=== PATIENT | male | born 1975 | race Hispanic/Latino ===

== ENCOUNTER 2017-06-23 09:18 | Emergency (ER) | payer OTHER ==
[~2017-06-23] VITALS: Ht 172.7 cm; Wt 82.0 kg
[2017-06-23] MEDS ORDERED: CLINDAMYCIN HC150 MG PO (09:56)
[2017-06-23] MEDS ORDERED: BACTRIM DS1 TAB PO (11:20)
[2017-06-23] MEDS ORDERED: NAPROSYN500 MG PO (11:35)
[2017-06-23 11:55] VITALS: BP 117/71
== END 2017-06-23 12:04 | disposition home or self-care (01) | DRG 607 ==
LOC: ED 09:18
DX: L73.9 Follicular disorder, unspecified (principal); E11.9 Type 2 diabetes mellitus without complications; F17.210 Nicotine dependence, cigarettes, uncomplicated

== ENCOUNTER 2018-11-17 10:16 | Emergency (ER) | payer SELFPAY ==
[~2018-11-17] VITALS: Ht 172.7 cm; Wt 74.0 kg
[~2018-11-17 10:16] MED LIST: BACTRIM DS1 TAB PO; CLINDAMYCIN HC150 MG PO; NAPROSYN500 MG PO
[2018-11-17] MEDS ORDERED: ACULAR LS0.4 % OS (10:42)
[2018-11-17] MEDS ORDERED: ERYTHROMYCIN O3.5 GM OU (10:42)
[2018-11-17 11:08] VITALS: BP 138/77
== END 2018-11-17 11:08 | disposition home or self-care (01) | DRG 125 ==
LOC: ED 10:16
DX: H10.9 Unspecified conjunctivitis (principal); E11.9 Type 2 diabetes mellitus without complications; F17.210 Nicotine dependence, cigarettes, uncomplicated

== ENCOUNTER 2020-04-27 20:31 | Inpatient (IN) | payer MEDICAID ==
[~2020-04-27] VITALS: Ht 175.3 cm; Wt 81.6 kg
[~2020-04-27 20:31] MED LIST changes: +ACULAR LS0.4 % OS; +ERYTHROMYCIN O3.5 GM OU
--- NOTE | 2020-04-27 20:34 | NUR ---
Pt to room # 6 via W/C for bedside triage
--- NOTE | 2020-04-27 21:00 | NUR ---
PT WENT TO [facility] ON FRIDAY GIVEN TRAMADOL AND VOLTAREN THEN ON FRIDAY HE WENT TO [facility] AND THEY GAVE HIM VICODIN AND KEFLEX. ASKED PT WHY HE DID NOT RETURN TO [facility]ITH[facility] HOSPITAL AND REPLY WAS [facility] DIDN'T GIVE HIM ANTIBIOTIC AND [facility] SAID HE WOULD BE BETTER IN 2 DAYS. PT LIVES IN [facility]. EXPLAINED THE NEED TO FOLLOW UP WITH SAME DOCTOR SO THEY CAN MONITOR HIS PROGRESS OR DECLINE. STILL NOT GETTING THE WHOLE STORY. PT STATED HE JUMPED DOWN OFF LADDER AND FELT SOMETHING POP. PUNCTURE WOUND NOTED TO BOTTOM CENTER OF FOOT. REDNESS AND SWELLING TO FOOT.
[2020-04-27] MEDS ORDERED: KEFLEX500 MG PO (21:16)
[2020-04-27] MEDS ORDERED: HYDROCODONE BIT1 TA9 PO (21:18)
[2020-04-27 21:30] LABS: HEMATOCRIT 38.7 % (39.0-50.0); HEMOGLOBIN 13.3 g/dl (14.0-18.0); MEAN CELL VOLUME 90.8 fL CALC (80.0-100.0); MEAN CORPUSCULAR HGB 31.2 pG CALC (26.0-32.0); MEAN CORPUSCULAR HGB CONC 34.4 g/dL CAL (32.0-36.0); PLATELET COUNT 231 thou/uL (130-400); RED BLOOD COUNT 4.26 mill/uL (4.70-6.10)
[2020-04-27 21:31] LABS: BASO% 0 % (0-3); EOS% 0 % (0-8); LYMPH% 10 % (15-41); MONO% 12 % (2-13); NEUT% 78 % (42-76)
[2020-04-27 21:36] LABS: ALBUMIN 3.3 g/dL (3.2-5.0); ALKALINE PHOSPHATASE 271 u/l (38-126); ANION GAP 13 (6-22 (CALC)); BUN 11 mg/dL (9-20); BUN/CREATININE RATIO 18 (12-20 (CALC)); CARBON DIOXIDE 29 mmol/l (22-30); CHLORIDE 94 mmol/l (95-108); CREATININE 0.6 mg/dL (0.7-1.3); GFR > 60 ML/MIN (>=60 (CALC)); GFR FOR AFR.AMER. > 60 ML/MIN (>=60 (CALC)); POTASSIUM 4.6 mmol/l (3.5-5.1); SGOT/AST 31 u/l (17-59); SODIUM 131 mmol/l (137-146); TOTAL PROTEIN 6.5 g/dL (6.3-8.2)
--- NOTE | 2020-04-27 21:44 | NUR ---
PT PAIN FREE AT THIS TIME. NO REACTION TO MEDICATION.
[2020-04-27 21:49] LABS: C-REACTIVE PROTEIN > 27.0 mg/dL (0-0.9)
--- NOTE | 2020-04-27 22:30 | NUR ---
REPORT GIVEN TO IESHA SANTOS
--- NOTE | 2020-04-27 22:55 | NUR ---
Admission Note Report Given to: TOM Transported by: X Wheelchair Stretcher Transported with: X Nurse Transporter X Patent IV O2 Blasting [place] Location: ICU X MS2
[2020-04-28] VITALS (10 sets, daily range): BP systolic 100–154; BP diastolic 57–82
--- NOTE | 2020-04-28 00:01 | NUR ---
RECEIVED PATIENT TO ROOM 274 AT 2300. PATIENT IS ALERT AND ORIENTED X3. ABLE TO MAKE NEEDS KNOWN. BURUNDIAN SPEAKING ONLY. SIGNIFICANT OTHER AT BEDSIDE TO HELP WITH COMMUNICATION. RESPIRATIONS EASY ON ROOM AIR.. SKIN WARM DRY. WOUND NOTED TO RIGHT FOOT WITH EDEMA NOTED. PAIN 1-2 OF 10 AT THIS TIME. CONTINENT OF URINE AND BOWEL. REPORTS HAVING BM 04/27/2020 IN A.M. SOFT FORMED AND BROWN IN COLOR. VAD #20 LAC WITH VANCO INFUSING FROM THE ED. SKIN INTACT EXCEPT RIGHT FOOT. EDUCATED PATIENT ON ROOM AND CALL LIGHT SYSTEM, SAFETY AND FALL PRECAUTIONS. VERBALIZED UNDERSTANDING. BED IN LOW POSITION. CALL LIGHT WITHIN REACH.
--- NOTE | 2020-04-28 04:00 | NUR ---
PATIENT RESTING WITH EYES CLOSED. WOUNDS TO RIGHT FOOT MEASURED AND PHOTOS TAKEN AND PLACED IN CHART. FOOT WRAPPED TO KEEP CLEAN UNTIL WOUND CARE ASSESSES FOOT. CURRENTLY ON ABT THERAPY FOR WOUND INFECTION TO RIGHT FOOT. BED IN LOW POSITION. CALL LIGHT WITHIN REACH.
[2020-04-28 05:40] LABS: URINE BILIRUBIN - DIPSTICK NEGATIVE (NEGATIVE); URINE BLOOD DIPSTICK LARGE (NEGATIVE); URINE COLOR YELLOW; URINE GLUCOSE - DIPSTICK 500 mg/dL (NEGATIVE); URINE KETONE NEGATIVE (NEGATIVE); URINE LEUK ESTERASE NEGATIVE (NEGATIVE); URINE NITRITE - DIPSTICK NEGATIVE (Negative); URINE PROTEIN - DIPSTICK TRACE mg/dL (NEG-TRACE)
[2020-04-28 05:44] LABS: HEMATOCRIT 34.6 % (39.0-50.0); HEMOGLOBIN 11.6 g/dl (14.0-18.0); IMMATURE GRANULOCYTES 1.5 % (0.0-5.0); MEAN CELL VOLUME 91.1 fL CALC (80.0-100.0); MEAN CORPUSCULAR HGB 30.5 pG CALC (26.0-32.0); MEAN CORPUSCULAR HGB CONC 33.5 g/dL CAL (32.0-36.0); NEUT# 13.78 thou/uL (1.82-7.42); RED BLOOD COUNT 3.8 mill/uL (4.70-6.10); RED CELL DISTRI WIDTH 13.2 % (11.5-15.5)
--- NOTE | 2020-04-28 06:00 | NUR ---
PATIENT COMPLAINED OF PAIN TO RIGHT FOOT. MORPHINE CLARIFIED. 4MG IV GIVEN FOR PAIN WITH POSITIVE EFFECT. BED IN LOW POSITION. CALL LIGHT WITHIN REACH.
[2020-04-28 06:02] LABS: ANION GAP 11 (6-22 (CALC)); BUN 14 mg/dL (9-20); BUN/CREATININE RATIO 19 (12-20 (CALC)); CARBON DIOXIDE 28 mmol/l (22-30); CHLORIDE 95 mmol/l (95-108); CREATININE 0.7 mg/dL (0.7-1.3); GFR > 60 ML/MIN (>=60 (CALC)); GFR FOR AFR.AMER. > 60 ML/MIN (>=60 (CALC)); POTASSIUM 4.3 mmol/l (3.5-5.1); SODIUM 130 mmol/l (137-146)
[2020-04-28 06:05] LABS: URINE BACTERIA FEW hpf; URINE SQUAMOUS EPITHELIAL CELL FEW EPI/hpf (0-FEW); URINE WBC 0-2 WBC/hpf (0-5)
--- NOTE | 2020-04-28 07:04 | NUR ---
Patient screened for PT intervention and no needs are identified at this time. He may benefit from wound care consult
--- NOTE | 2020-04-28 08:00 | NUR ---
ASSESSMENT DONE. PT IS A&O X3. PT STATED PAIN IN RIGHT FOOT AT TIMES 10 BUT REFUSED PAIN MEDICATION AT THIS TIME. RESPS EVEN AND UNLABORED. PT NPO. IVF INFUSING WELL. RIGHT FOOT WOUND OPEN TO AIR AND FEELS WARM TO THE TOUCH. PT DENIES ANY NEEDS AT THIS TIME. SAFETY PRECAUTIONS REINFORCED AND CALL LIGHT IN REACH.
--- NOTE | 2020-04-28 10:00 | NUR ---
PT WENT TO OR VIA STRETCHTER BY IESHA BOSWELL.
--- NOTE | 2020-04-28 10:53 | NUR ---
S: BETH ALTAMIRANO is a 44 M who presents with diabetic foot infection. He has a history of diabetes. All medications in patient's chart were reviewed. O: VS: BP 147/82 mmHg, P 100 bpm, RR 22 breaths per minutes, T 100.2 F W 82 kg, HT 68 in, Scr= 0.7 mg/dL, CrCl= 159 ml/min A: Blood culture is pending. P: Patient is on Zosyn 3.375 g IV q6h. Vancomycin ordered for pharmacy to dose. Start Vancomycin 1 g IV Q8H. Vancomycin trough is drawn before the 4th dose on 04/29/20 at 0730. Vancomycin goal trough is between 10-15 mcg/ml. Pharmacy will follow and or advise on antibiotics use as needed.
--- NOTE | 2020-04-28 13:09 | NUR ---
PT IN ROOM. PT BACK FROM OR VIA STRETCHTER BY IESHA FARRELL. PT TRANSFER TO BED. DRESSING IN RIGHT FOOTT CDI. PT STATED PAIN IN FOOT 10/14. ICE CHIPS AND WATER PROVIDED. IVF INFSUING WELL. X2 PILLOW UNDER RIGHT LEG. PT DENIES ANY OTHER NEEDS AT THIS TIME. CALL LIGHT IN REACH.
--- NOTE | 2020-04-28 16:30 | NUR ---
PROVIDED PT WITH PO FLUIDS . MEDICATED PT WITH MILK MAG FOR A BM. IN ROOM. SCD IN PLACE. PT DENIES ANY OTHER NEEDS AT THIS TIME. CALL LIGHT IN REACH.-
--- NOTE | 2020-04-28 20:45 | NUR ---
PATIENT AWAKE IN BED. ALERT AND ORIENTED X3. ABLE TO MAKE NEEDS KNOWN. RESPIRATIONS EASY. O2 2L NC PRN. AT 1915 PATIENT REPORTED PAIN 2 OF 10 TO RIGHT FOOT. RIGHT FOOT BANDAGED, CDI, AFTER SUGERY. PATIENT HAD MODERATE AMOUNT OF EMESIS BROWN AND GREEN CHUNKS NOTED. 4MG ZOFRAN IV GIVEN.
--- NOTE | 2020-04-29 00:30 | NUR ---
PATIENT RESTING QUIETLY WATCHING TV. PATIENT MEDICATED WITH MORPHINE 4MG IV FOR RIGHT FOOT PAIN WITH VERY GOOD POSITIVE EFFECT PAIN REASSESSED AT -08/16 AFTER ADMINISTRATION. PATIENT HAD NAUSEA EARLIER. ZOFRAN 4MG IV GIVEN WITH IMMEDIATE POSITIVE EFFECT. RIGHT FOOT ELEVATED ON PILLOWS. DESSING CDI. IV ABT ADMINISTERED. BED IN LOW POSITION. CALL LIGHT WITHIN REACH.
[2020-04-29 04:00] VITALS: BP 156/83
--- NOTE | 2020-04-29 04:00 | NUR ---
PATIENT C/O SEVERE RIGHT FOOT PAIN 04/06. MORPHINE NOT DUE FOR 3 MORE HOURS. MD NOTIFIED. NEW ORDERS RECEIVED. MORPHINE 4MG IV GIVEN WITH IMMEDIATE POSITVE EFFECT 07/16. BED IN LOW POSITION. CALL LIGHT WITHIN REACH.
[2020-04-29 07:11] VITALS: BP 140/75
--- NOTE | 2020-04-29 07:11 | NUR ---
PT RESTING IN BED, NO SIGNS OF DISTRESS NOTED, RESP EVEN AND UNLABORED. PT ALERT AND ORIENTED X3, DRESSING TO RLE CDI, SCD TO LLE, PT SOUTH AFRICAN SPEAKING, PORTABLE ROUTER OPERATOR SPEAKS SOUTH AFRICAN. DISCUSSED POC, ASSESSMENT COMPLETED, CALL LIGHT IN REACH,CONTINUE TO MONITOR.
[2020-04-29 07:46] LABS: HEMATOCRIT 30.2 % (39.0-50.0); HEMOGLOBIN 10.1 g/dl (14.0-18.0); IMMATURE GRANULOCYTES 1.6 % (0.0-5.0); MEAN CELL VOLUME 91.5 fL CALC (80.0-100.0); MEAN CORPUSCULAR HGB 30.6 pG CALC (26.0-32.0); MEAN CORPUSCULAR HGB CONC 33.4 g/dL CAL (32.0-36.0); NEUT# 12.16 thou/uL (1.82-7.42); RED BLOOD COUNT 3.3 mill/uL (4.70-6.10); RED CELL DISTRI WIDTH 13.3 % (11.5-15.5)
[2020-04-29 08:06] LABS: ALKALINE PHOSPHATASE 235 u/l (38-126); ANION GAP 11 (6-22 (CALC)); BILIRUBIN, TOTAL 0.9 mg/dL (0.0-1.4); BUN 10 mg/dL (9-20); BUN/CREATININE RATIO 16 (12-20 (CALC)); CARBON DIOXIDE 24 mmol/l (22-30); CHLORIDE 104 mmol/l (95-108); CREATININE 0.6 mg/dL (0.7-1.3); GFR > 60 ML/MIN (>=60 (CALC)); GFR FOR AFR.AMER. > 60 ML/MIN (>=60 (CALC)); POTASSIUM 4.1 mmol/l (3.5-5.1); SGOT/AST 30 u/l (17-59); SODIUM 135 mmol/l (137-146); TOTAL PROTEIN 5.2 g/dL (6.3-8.2)
[2020-04-29 08:10] LABS: ALBUMIN 2.5 g/dL (3.2-5.0)
--- NOTE | 2020-04-29 08:25 | NUR ---
PT RESTING IN BED AT BEDSIDE, PT MEDICATED FOR PAIN PT TEARFUL, CALL LIGHT IN REACH,CONTINUE TO MONITOR.
--- NOTE | 2020-04-29 09:45 | NUR ---
PT RESTING IN BED, AT BEDSIDE, ENTERED ROOM TO DISCUSSED PNEUMONIA AND FLU VACC, CONSENT SIGNED, INFORMATION GIVEN ON VACCINES. ALSO DISCUSSED WITH AND PT REGARDING DIABETES, INFORMATION IN [place] PROVIDED TO PT, VERBALIZED UNDERSTANDING. AND BUTCH ARRIVED TO BEDSIDE TO DISCUSS POC, WALKER PROVIDED TO PT FOR NON WT BEARING TO RLE. CALL LIGHT IN REACH,CONTINUE TO MONITOR.
--- NOTE | 2020-04-29 10:10 | NUR ---
AT BEDSIDE DOING DRESSING CHANGED, PT MEDICATED FOR PAIN, AT BEDSIDE. PT TOLERATING WELL. CALL LIGHT IN REACH,CONTINUE TO MONITOR.
--- NOTE | 2020-04-29 10:46 | NUR ---
S: BETH ALTAMIRANO is a 44 M who presents with diabetic foot infection. He has a history of right shoulder surgery. All medications in patient's chart were reviewed. O: VS: BP 140/75 mmHg, P 91 bmp, RR 21 breaths/min, T 97.8 W 82 kg, Scr= 0.6 mg/dL, CrCl= 159 ml/min Vancomycin Trough levels: 7 ug/mL A: Blood culture is pending. P: Patient is on Zosyn 3.375 g Q6H. Vancomycin ordered for pharmacy to dose. Change Vancomycin to 1500 mg IV Q8H. Vancomycin trough is drawn before the 4th dose on 04/30/20 at 0930. Vancomycin goal trough is between 10-15 mcg/ml. Pharmacy will follow and or advise on antibiotics use as needed.
--- NOTE | 2020-04-29 11:48 | NUR ---
PT NAUSEOUS, NEW ORDER FOR ANTIEMETIC, PT MEDICATED PER SEP, PT HAS A FEVER 101.4, CALL LIGHT IN REACH,CONTINUE TO MONITOR.
--- NOTE | 2020-04-29 13:28 | NUR ---
PT MEDICATED PER MAR FOR PAIN, CALL LIGHT IN REACH,CONTINUE TO MONITOR.
--- NOTE | 2020-04-29 14:19 | NUR ---
PT RESTING IN BED, DENIES PAIN AT THIS TIME. CALL LIGHT IN REACH,CONTINUE TO MONITOR
[2020-04-29 16:25] VITALS: BP 130/75
--- NOTE | 2020-04-29 19:12 | NUR ---
PT IN BED W/ ON SIDE OF BED WITH HIM. PT DENIES ANY NEEDS AT THIS TIME. CALL LIGHT IS W/IN REACH.
[2020-04-29 19:21] VITALS: BP 107/66
--- NOTE | 2020-04-29 20:50 | NUR ---
PT MEDICATED FOR PAIN AND PM MEDICATIONS ORDERED. TRANSLATION PROVIDED BY IESHA FINK. PT REPORTED PAIN 7/10 ON PAIN SCALE AND STATES THAT THE DOCTOR TOLD HIM TO ASK FOR THE PAIN MEDICATION EVERY 4 HOURS TO KEEP FROM GETTING INTO PAIN. POC AND ORDERS DISCUSSED AT THIS TIME WITH THE PT AND HER VERBALIZED UNDERSTANDING. PT WAS ASKED TO REPORT ANY PAIN PRIOR TO GREATER THAN 4/10 IN ORDER TO KEEP PAIN DOWN, VERBALIZED UNDERSTANDING. PT DENIES ANY OTHER NEEDS AT THIS TIME. CALL LIGHT W/IN REACH.
--- NOTE | 2020-04-29 23:45 | NUR ---
PT MEDICATED FOR PAIN 5/10 ON PAIN SCALE. ANTIBIOTIC THERAPY ADMINISTERED TODAY. PT REPORTS FEELING HOT AND COLD, CONCERNED HE HAD A FEVER, TEMP TAKEN @98.6. PT DENIES ANY OTHER NEEDS. TRANSLATION PROVIDED BY IESHA FINK/SUPERVISION.
--- NOTE | 2020-04-30 00:59 | NUR ---
pt c/o chills and asked to have temp taken. pt tympanic temp 100.4 at this time. Pt medicated for pain 7/10 on pain scale. Pt reports the Dilaudid did not help, he needs something by mouth. Provided percocet at this time. Will reassess for temp, room is cooled. Antibiotic therapy administered at this time. Urinal emptied of 1000cc of dark yellow urine. Denies any other needs at this time.
--- NOTE | 2020-04-30 02:00 | NUR ---
pt called me to ask why drops were not dropping from his ivf. I showed him that the pump was on and running 250mls per hr with iv antibiotic vancomycin at this time, he will see the drops of other ivf when that one is complete. Pt provided ice water pitcher refill, denies any other needs.
--- NOTE | 2020-04-30 02:30 | NUR ---
Pt called asking for pain medication. Reports previously administered medication doses did not take the pain away. Reporting 9/10 on pain scale from previously 7/10 when last medicated. Advised pt keep foot elevated on pillow for comfort and pt provided IV pain medication at this time. IV antibiotic is running/site appears healthy. No s/o distress noted. Call light is w/in reach. Pt requesting lights and tv be left on. Ice water replaced in pitcher at this time.
--- NOTE | 2020-04-30 03:20 | NUR ---
Pt sleeping at this time. No s/o distress.
[2020-04-30 05:57] LABS: HEMATOCRIT 29.2 % (39.0-50.0); HEMOGLOBIN 9.6 g/dl (14.0-18.0); MEAN CELL VOLUME 91.5 fL CALC (80.0-100.0); MEAN CORPUSCULAR HGB 30.1 pG CALC (26.0-32.0); MEAN CORPUSCULAR HGB CONC 32.9 g/dL CAL (32.0-36.0); RED BLOOD COUNT 3.19 mill/uL (4.70-6.10); RED CELL DISTRI WIDTH 13.2 % (11.5-15.5)
[2020-04-30 06:02] LABS: ANION GAP 10 (6-22 (CALC)); BUN 10 mg/dL (9-20); BUN/CREATININE RATIO 16 (12-20 (CALC)); CARBON DIOXIDE 26 mmol/l (22-30); CHLORIDE 99 mmol/l (95-108); CREATININE 0.7 mg/dL (0.7-1.3); GFR > 60 ML/MIN (>=60 (CALC)); GFR FOR AFR.AMER. > 60 ML/MIN (>=60 (CALC)); MAGNESIUM 1.8 mg/dL (1.6-2.3); POTASSIUM 4.3 mmol/l (3.5-5.1); SODIUM 130 mmol/l (137-146)
[2020-04-30 06:15] VITALS: BP 150/87
--- NOTE | 2020-04-30 06:25 | NUR ---
PT MEDICATED FOR NAUSEA, PAIN AND ANTIBIOTIC THERAPY. PT ALSO MEDICATED W/TYLENOL FOR FEVER 100.6, PT SYMPTOMATIC, HR ELEVATED AND CHILLS REPORTED. PT REQUESTED ICEPACK FOR HEAD/PROVIDED.
[2020-04-30 07:09] VITALS: BP 133/75
--- NOTE | 2020-04-30 07:09 | NUR ---
PT RESTING IN BED, NO SIGNS OF DISTRESS NOTED, RESP EVEN AND UNLABORED. PT ALERT AND ORIENTED X3, MALTESE SPEAKING, MONOLOGIST SPEAKS MALTESE. DISCUSSED POC, DRESSING TO RLE CDI, SCD TO LLE. VITALS OBTAINED, ASSESSMENT COMPLETED, CALL LIGHT IN REACH,CONTINUE TO MONITOR.
--- NOTE | 2020-04-30 11:05 | NUR ---
PT RESTING IN BED, AT BEDSIDE, DISCUSSED LEVEMIR WITH PT, VERBALIZED UNDERSTANDING. [facility], GABRIELLE GUEVARA. CALL LIGHT IN REACH,CONTINUE TO MONITOR.
--- NOTE | 2020-04-30 11:43 | NUR ---
S: BETH ALTAMIRANO is a 44 M who presents with diabetic foot infection. He has a history of tobacco abuse and diabetes. All medications in patient's chart were reviewed. O: VS: BP 133/75 mmHg, P 105 bpm, RR 20 breaths/min, T 98.2 F W 81.6 kg, HT 60 in, Scr= 0.7 mg/dl, CrCl= 159 ml/min Trough levels on 04/30/20 at 1020 was 8 ug/mL A: Blood culture is pending. P: Patient is on Zosyn 3.375 g IV Q6H. Vancomycin ordered for pharmacy to dose. Continue Vancomycin 1500 mg IV Q8H and re-draw trough on 05/01/20 at 0930. Vancomycin goal trough is between 10-15 mcg/ml. Pharmacy will follow and or advise on antibiotics use as needed.
[2020-04-30 11:44] VITALS: BP 135/75
--- NOTE | 2020-04-30 14:30 | NUR ---
PT CALLED C/O PAIN, NO SIGNS OF DISTRESS NOTED, RESP EVEN AND UNLABORED.CALL LIGHT IN REACH,CONTINUE TO MONITOR.
[2020-04-30 19:00] VITALS: BP 127/79
--- NOTE | 2020-04-30 19:00 | NUR ---
REPORT RECEIVED FROM Zakia THORNE LPN, CARE OF PT ASSUMED AT THIS TIME.
--- NOTE | 2020-04-30 21:00 | NUR ---
PHYSICAL ASSESMENT COMPLETE. DRESSING TO RLE CLEAN/DRY/INTACT. SEE E-MAR FOR ADMINISTRATION OF SCHEDULED AND PRN MEDICATIONS. PLAN OF CARE REVIEWED. PT VERBALIZES UNDERSTANDING AND DENIES QUESTIONS. DENIES FURTHER NEEDS AT THIS TIME. CALL JIMENEZ WITHIN REACH, AGREES TO CALL PRN.
[2020-05-01] VITALS (11 sets, daily range): BP systolic 133–156; BP diastolic 66–92
--- NOTE | 2020-05-01 01:00 | NUR ---
PT APPEARS TO BE SLEEPING COMFORTABLY, NO APPARENT DISTRESS, RESPIRATION REGULAR AND UNLABORED, EYES CLOSED. CALL JIMENEZ REMAINS WITHIN REACH.
--- NOTE | 2020-05-01 07:34 | NUR ---
PT. TO GO TO SURGERY FOR AN I&D TODAY OF THE RIGHT FOOT. WALKS WITH ASSIST TO BR WITH WALKER. FRISIAN SPEAKING ONLY. iv LAC 20 G PATENT. TO BE NPO AFTER 9AM FOR SURGERY IN THE AFTERNOON. GOD PEDAL PULSE LEFT FOOT. WILL MONITOR. USES URINAL
--- NOTE | 2020-05-01 11:32 | NUR ---
S: BETH ALTAMIRANO is a 44 M who presents with diabetic foot infecction. He has a history of diabetes and tobacco use. All medications in patient's chart were reviewed. O: VS: BP 149/85 mmHg, P 101 bpm, RR 20 breaths per minute, T 98.6 F W 81.6 kg, HT 60 in, Scr= 0.7 mg/dL, CrCl= 159 ml/min Vanco trough on 05/01 @ 0930: 10 ug/mL A: Blood culture is pending. Wound culture shows E.coli sensitive to ceftriaxone. P: Patient is on ceftriaxone 2 g IV q24h. Vancomycin ordered for pharmacy to dose. Continue Vancomycin 1500 mg IV Q8H. Vancomycin trough is drawn before the 4th dose on 05/02/20 at 0930. Vancomycin goal trough is between 10-15 mcg/ml. Pharmacy will follow and or advise on antibiotics use as needed.
--- NOTE | 2020-05-01 12:00 | NUR ---
PT. ALERT AND HEBREW SPEAKING. MADE npo AFTER 9AM FOR SURGERY THIS AFTERNOON ON RIGHT FOOT. iv L AC PATIENT AND INTACT. PT. MEDICATED FOR PAIN PRN TO KEEP COMFORTABLE. GOOD PEDAL PULSE TO L FOOT. WILL MONITOR.
--- NOTE | 2020-05-01 12:07 | NUR ---
called wound vac [facility] at spoke to MJ and was given confirmation number [id number].
--- NOTE | 2020-05-01 16:00 | NUR ---
PT. STILL IN OR. AWAITING NOTIFICATION THAT PT. IS OUT OF SURGERY. FAMILY MEMBER IS AT BEDSIDE. OFFERED SNACK TO FAMILY MEMBER.
--- NOTE | 2020-05-01 19:55 | NUR ---
RECEIVED REPORT FROM NURSE MIS, PATIENT WAS TRANSPORTED VIA BED, WOUNDVAC ON RT FOOT AT 125, S/P I&D OF RT FOOT WITH AMPUTATION OF 4TH DIGIT OF THE RT FOOT, FOOT WRAP WITH KERLIX, PATIENT ASSISTED TO BED, AND OFF LOADED WITH PILLOW, IN ROOM CALL LIGHT AT REACH.
--- NOTE | 2020-05-02 | NUR ---
PATIENT C/O PAIN ON OPERATIVE SITE, PRN DILAUDIS GIVEN, BREATHING EVEN UNLAOBORED REMAINS ON O2 @ 2LPM VIA NC, CALL LIGHT AT REACH.
--- NOTE | 2020-05-02 03:53 | NUR ---
PATIENT RESTING IN BED EYES CLOSED, O2 @ 2LPM VIA NC, WOUNDVAC SET @ 125 NO LEAKS, RLE REMAINS ELEVATED, CALL LIGHT AT REACH.
[2020-05-02 03:55] VITALS: BP 158/89
[2020-05-02 04:43] LABS: HEMATOCRIT 26.6 % (39.0-50.0); HEMOGLOBIN 8.8 g/dl (14.0-18.0); MEAN CELL VOLUME 91.7 fL CALC (80.0-100.0); MEAN CORPUSCULAR HGB 30.3 pG CALC (26.0-32.0); MEAN CORPUSCULAR HGB CONC 33.1 g/dL CAL (32.0-36.0); RED BLOOD COUNT 2.9 mill/uL (4.70-6.10); RED CELL DISTRI WIDTH 13.2 % (11.5-15.5)
[2020-05-02 05:01] LABS: ANION GAP 10 (6-22 (CALC)); BUN 7 mg/dL (9-20); BUN/CREATININE RATIO 11 (12-20 (CALC)); CARBON DIOXIDE 26 mmol/l (22-30); CHLORIDE 100 mmol/l (95-108); CREATININE 0.7 mg/dL (0.7-1.3); GFR > 60 ML/MIN (>=60 (CALC)); GFR FOR AFR.AMER. > 60 ML/MIN (>=60 (CALC)); POTASSIUM 4.1 mmol/l (3.5-5.1); SODIUM 133 mmol/l (137-146)
[2020-05-02 08:00] VITALS: BP 135/82
--- NOTE | 2020-05-02 09:00 | NUR ---
PT AWAKE, ALERT, ORIENTED X 3. RIGHT FOOT SEEN WITH DRESSING, SOURCE OF HIS DISCOMFORT. PT MEDICATED POSSIBLE. AT BEDSIDE.
[2020-05-02 11:10] VITALS: BP 115/67
[2020-05-02 14:55] VITALS: BP 117/64
--- NOTE | 2020-05-02 18:41 | NUR ---
PT WITH DOUBLE LUMEN PICC LINE PLACED TODAY. PT HAS RECEIVED PAIN MEDICINE JUST ABOUT EVERY 2 HOURS WHEN AVAILABLE. AT BEDSIDE MUCH OF THE DAY.
[2020-05-02 19:10] VITALS: BP 134/75
--- NOTE | 2020-05-02 19:30 | NUR ---
PATIENT RESTING IN BED AT THIS TIME-AWAKE ALERT AND ORIENTEDX3 WITH S/O AT BEDSIDE. PATIENT IS MOSTLY TAMAZIGHT SPEAKING. STATES THAT PAIN LEVEL IS 3 AT THIS TIME. PATIENT WITH RIGHT FOOT DRESSING CDI AND ELEVATED ON PILLOWS-ATTATCHED TO WOUND VAC@125MMHG CONT ORDERED. CMS CHECK TO RIGHT TOES WNL. DOUBLE LUMEN PICC TO RIGHT UPPER ARM WITH NS AT 20CC/HR. SITE IS HEALTHY. SAFETY PRECAUTIONS REINFORCED. CALL LIGHT IN REACH. WILL CONT TO MONITOR.
--- NOTE | 2020-05-03 00:49 | NUR ---
PATIENT RESTING IN BED WITH RIGHT LEG ELEVATED ON PILLOWS. STATES NO RELIEF FROM PERCOCET GIVEN EARLIER. MEDICATED WITH DILAUDID 1MG IVP ORDERED FOR 10/10 ON PAIN SCALE. SAFETY PRECATUIONS REINFORCED. CALL LIGHT IN REACH. WILL CONT TO MONITOR.
--- NOTE | 2020-05-03 02:50 | NUR ---
PATIENT CALLED AGAIN C/O RIGHT FOOT PAIN-8/10 ON PAIN SCALE. MEDICATED WITH DILAUDID 1MG IVP FOR PAIN. VANCO INFUSING VIA RIGHT UPPER ARM PICC. CALL LIGHT IN REACH. WILL CONT TO MONITOR.
[2020-05-03 04:20] VITALS: BP 126/80
--- NOTE | 2020-05-03 04:24 | NUR ---
PATIENT RESTING IN BED AT THIS TIME-PAIN LEVEL IS 6/10 AT THIS TIME. VANCO COMPLETED AND NS PATENT AND INFUSING AT 20CC/HR VIA RIGHT UPPER ARM. LAB WORK DRAWN FROM PICC WITHOUT ANY DIFFICULTY AND GOOD BLOOD RETURN. FLUSHED WITH HEPARIN SOLUTION PER PROTOCOL. RIGHT FOOT REMAINS ELEVATED WITH WOUND VAC IN PLACE-DRAINING MODERATE AMT OF SERSOSANGUINOUS FLUID-SET AT 125MMHG CONT. DRESSING TO RIGHT FOOT IS CDI. CALL LIGHT IN REACH. WILL CONT TO MONITOR.
[2020-05-03 05:40] LABS: HEMATOCRIT 24.8 % (39.0-50.0); HEMOGLOBIN 8.1 g/dl (14.0-18.0); MEAN CELL VOLUME 93.2 fL CALC (80.0-100.0); MEAN CORPUSCULAR HGB 30.5 pG CALC (26.0-32.0); MEAN CORPUSCULAR HGB CONC 32.7 g/dL CAL (32.0-36.0); RED BLOOD COUNT 2.66 mill/uL (4.70-6.10); RED CELL DISTRI WIDTH 13.2 % (11.5-15.5)
[2020-05-03 05:59] LABS: ANION GAP 8 (6-22 (CALC)); BUN 5 mg/dL (9-20); BUN/CREATININE RATIO 10 (12-20 (CALC)); CARBON DIOXIDE 30 mmol/l (22-30); CHLORIDE 101 mmol/l (95-108); CREATININE 0.6 mg/dL (0.7-1.3); GFR > 60 ML/MIN (>=60 (CALC)); GFR FOR AFR.AMER. > 60 ML/MIN (>=60 (CALC)); MAGNESIUM 1.9 mg/dL (1.6-2.3); SODIUM 134 mmol/l (137-146)
[2020-05-03 07:35] VITALS: BP 136/81
--- NOTE | 2020-05-03 07:35 | NUR ---
PT LAYING IN BED. A&O X3. NO DISTRESS NOTED. DOUBLE LUMEN PICC TO PUSHPA IN PLACE. FLUSHES AND DRAWS BACK BLOOD WITH EASE. WOUND VAC TO RLE IN PLACE, SUCTIONING AT 125 MM HG WITH SANGUINEOUS DRAINAGE NOTED IN COLLECTION CHAMBER. EDEMA NOTED TO LEFT ANKLE. PT C/O OF PAIN 12/14, PAIN MEDICATION TO BE ADMINISTERED PER SEP. ASSESSMENT COMPLETED. DISCUSSED POC. CALL LIGHT IN REACH. CONTINUE TO MONITOR.
--- NOTE | 2020-05-03 11:17 | NUR ---
PT LAYING IN BED WITH AT BEDSIDE. NO DISTRESS NOTED. CALL LIGHT IN REACH. CONTINUE TO MONITOR.
[2020-05-03 15:00] VITALS: BP 118/58
--- NOTE | 2020-05-03 17:47 | NUR ---
350 ML OF SANGUINEOUS FLUID NOTED TO COLLECTION CHAMBER. COLLECTION CHAMBER CHANGED TO A NEW ONE. PT REPORTS 01/13 AT THIS TIME. CALL LIGHT IN REACH. CONTINUE TO MONITOR.
[2020-05-03 18:51] VITALS: BP 139/78
--- NOTE | 2020-05-03 20:29 | NUR ---
PHYSICAL ASSESMENT COMPLETE. PT CURRENTLY STATES THAT HE IS IN PAIN AND DISCOMFORT. SCHEDULED MEDICATIONS AND PRN MEDICATION ADMINISTERED, SEE E-MAR. PT DENIES ANY FURTHER NEEDS AT THIS TIME. PLAN OF CARE REVIEWED, PT DENIES QUESTIONS, VERBALIZES UNDERSTANDING. ITEMS WITHIN REACH, BED LOCKED IN LOW POSITION W/ BEDRAILS UP X2. CALL JIMENEZ WITHIN REACH, AGREES TO CALL PRN.
--- NOTE | 2020-05-04 00:07 | NUR ---
PT LAYING IN BED WITH EYES CLOSED, APPEARS TO BE SLEEPING, APPEARS COMFORTABLE AND IN NO DISTRESS. RESPIRATIONS REGULAR AND UNLABORED. ITEMS REMAIN WITHIN REACH, CALL JIMENEZ REMAINS WITHIN REACH. BED REMAINS LOCKED AND IN LOW POSITION WITH BEDRAILS UP X2. WILL CONTINUE TO MONITOR.
--- NOTE | 2020-05-04 04:02 | NUR ---
PT RESTING IN BED, NO SIGNS OF DISTRESS NOTED, RESP EVEN AND UNLABORED. PT VOICES NO NEEDS OR COMPLAINTS AT THIS TIME. CALL LIGHT IN REACH,CONTINUE TO MONITOR.
[2020-05-04 04:25] VITALS: BP 147/86
[2020-05-04 05:32] LABS: HEMATOCRIT 27.3 % (39.0-50.0); HEMOGLOBIN 8.9 g/dl (14.0-18.0); MEAN CELL VOLUME 92.5 fL CALC (80.0-100.0); MEAN CORPUSCULAR HGB 30.2 pG CALC (26.0-32.0); MEAN CORPUSCULAR HGB CONC 32.6 g/dL CAL (32.0-36.0); RED BLOOD COUNT 2.95 mill/uL (4.70-6.10); RED CELL DISTRI WIDTH 13.2 % (11.5-15.5)
[2020-05-04 05:53] LABS: ANION GAP 11 (6-22 (CALC)); BUN 4 mg/dL (9-20); BUN/CREATININE RATIO 7 (12-20 (CALC)); CARBON DIOXIDE 30 mmol/l (22-30); CHLORIDE 103 mmol/l (95-108); CREATININE 0.6 mg/dL (0.7-1.3); GFR > 60 ML/MIN (>=60 (CALC)); GFR FOR AFR.AMER. > 60 ML/MIN (>=60 (CALC)); POTASSIUM 4.2 mmol/l (3.5-5.1); SODIUM 140 mmol/l (137-146)
[2020-05-04 08:12] VITALS: BP 134/68
--- NOTE | 2020-05-04 08:12 | NUR ---
PT SITTING IN BED. A&O X3. NO DISTRESS NOTED. DOUBLE LUMEN PICC TO PUSHPA, FLUSHES AND DRAWS BLOOD WITH EASE. PT STATES PAIN IS CURRENTLY 4/10. WOUND VAC IN PLACE SET AT SUCTION AT 125 MM HG, WITH DRESSING CDI. CIRCULATION CHECKED WITH BRISK RESPONSE. EDEMA NOTED TO LT FOOT, ELEVATED BOTH FEET ON PILLOWS. NO OTHER NEEDS AT THIS TIME. ASSESSMENT COMPLETED. DISCUSSED POC. CALL LIGHT IN REACH. CONTINUE TO MONITOR.
--- NOTE | 2020-05-04 12:12 | NUR ---
DR NAVARRO AT BEDSIDE COMPLETING WOUND VAC DRESSING CHANGE
[2020-05-04 15:33] VITALS: BP 121/76
--- NOTE | 2020-05-04 16:13 | NUR ---
PT LAYING IN BED WITH AT BEDSIDE. C/O OF PAIN 03/16. PAIN MEDICATION GIVEN. SECURED WOUND VAC DRESSING, WOUND VAC SUCTIONING WITH SANGUINEOUS DRAINAGE NOTED IN COLLECTION CHAMBER. EXPLAINED TO PT TO PRESS CALL LIGHT IF WOUND VAC NOISE CONTINUES. PT VERBALIZED UNDERSTANDING. CALL LIGHT IN REACH. CONTINUE TO MONITOR.
--- NOTE | 2020-05-04 19:30 | NUR ---
PATIENT RESTING IN BED AT THIS TIME WITH S/O AT BEDSIDE. PATIENT IS MOSTLY UGANDAN SPEAKING BUT S/O IS ABLE TO TRANSLATE. PATIENT WITH RIGHT FOOT ELEVATED ON PILLOWS. RIGHT FOOT DRESSING INTACT WITH WOUND VAC IN PLACE. DRAINING SEROSANGUINOUS FLUID. PATIENT WITH DOUBLE LUMEN PICC TO RIGHT UPPER ARM WITH DAPTOMYCIN INFUSING ORDERED. SITE IS HEALTHY AT THIS TIME. PATIENT FOR OR IN AM PER REPORT. SAFETY PRECAUTIONS REINFORCED. CALL LIGHT IN REACH. WILL CONT TO MONITOR.
[2020-05-04 20:30] VITALS: BP 129/75
--- NOTE | 2020-05-04 21:00 | NUR ---
PATIENT RESTING IN BED AND WOUND VAC IS ALARMING-DEAN WRAP AND KERLIX REMOVED. WOUND VAC DRESSING WITHOUT ANY OBVIOUS LEAKAGE BUT REINFORCED. NEW KERLIX DRESSING AND DEAN WRAP REAPPLIED. REMAINS ELEVATED ON PILLOWS. PATIENT MEDICATED FOR PAIN WITH DILAUDID 1MG IVP ORDERED FOR PAIN. BS-173-NOT COVERED AT THIS TIME PER PATIENT. NPO AFTER MIDNIGHT FOR OR IN AM. SAFETY PRECAUTIONS REINFORCED. CALL LIGHT IN REACH. WILL CONT TO MONITOR.
--- NOTE | 2020-05-04 23:00 | NUR ---
PATIENT RESTING IN BED-MEDICATED FOR RIGHT FOOT PAIN WITH DILAUDID 1MG IVP. IVF PATENT AND INFUSING VIA RIGHT UPPER ARM SITE. RIGHT FOOT ELEVATED ON PILLOWS WITH DRESSING INTACT-WOUND VAC IN PLACE. CALL LIGHT IN REACH. WILL CONT TO MONITOR.
--- NOTE | 2020-05-05 03:19 | NUR ---
PATIENT APPEARS SLEEPING WITH SHEET OVER HIS HEAD. RESPS ARE EVEN AND UNLABORED. NPO ORDERED. VOIDING QS CLEAR YELLOW URINE IN URINAL. CALL LIGHT IN REACH. WILL CONT TO MONITOR.
[2020-05-05 04:15] VITALS: BP 121/74
--- NOTE | 2020-05-05 04:33 | NUR ---
WOUND VAC IS ALARMING AGAIN-DEAN AND KERLIX DRESSING REMOVED AND WOUND VAC PATCHED OVER THE BLACK SPONGE AREA. NEW KERLIX GAUZE AND DEAN WRAP APPLIED. WOUND VAC AT 125MMHG DRAINING BLOODY DRAINAGE. PATIENT C/O RIGHT FOOT PAIN AND WAS MEDICATED WITH DILAUDID 1MG IVP FOR PAIN. PATIENT REMAINS NPO FOR OR TODAY. RIGHT FOOT ELEVATED ON PILLOWS. CALL LIGHT IN REACH. WILL CONT TO MONITOR.
[2020-05-05 05:51] LABS: HEMATOCRIT 26.7 % (39.0-50.0); HEMOGLOBIN 8.6 g/dl (14.0-18.0); MEAN CELL VOLUME 92.4 fL CALC (80.0-100.0); MEAN CORPUSCULAR HGB 29.8 pG CALC (26.0-32.0); MEAN CORPUSCULAR HGB CONC 32.2 g/dL CAL (32.0-36.0); RED BLOOD COUNT 2.89 mill/uL (4.70-6.10); RED CELL DISTRI WIDTH 13.2 % (11.5-15.5)
[2020-05-05 06:04] LABS: ANION GAP 11 (6-22 (CALC)); BUN 7 mg/dL (9-20); BUN/CREATININE RATIO 11 (12-20 (CALC)); CARBON DIOXIDE 28 mmol/l (22-30); CHLORIDE 103 mmol/l (95-108); CREATININE 0.6 mg/dL (0.7-1.3); GFR > 60 ML/MIN (>=60 (CALC)); GFR FOR AFR.AMER. > 60 ML/MIN (>=60 (CALC)); POTASSIUM 4.4 mmol/l (3.5-5.1); SODIUM 138 mmol/l (137-146)
[2020-05-05 07:40] VITALS: BP 105/60
--- NOTE | 2020-05-05 10:26 | NUR ---
PATIENT TO SURGERY VIA STRETCHER, FAMILY AT BEDSIDE, PT VERB UNDERSTANDING OF SURGERY. LEFT FOOT WD VAC, DRESSING INTACT, TOES WARM AND DRY, SERO-SANG DRAINAGE IN THE WD VAC CANISTER. WILL CONTINUE TO MONITOR.
--- NOTE | 2020-05-05 14:26 | NUR ---
PT RETURNED TO ROOM FROM SURGERY, WD VAC DRESSING INTACT, PT C/O PAIN. DILAUDID 1MG GIVEN 162/104, 18, 98.1
--- NOTE | 2020-05-05 15:23 | NUR ---
PATIENT AND FAMILY EDUCATION, PATIENT STATED THAT HE WAS NOT ON INSULIN AT HOME, INSTRUCTED THE PATIENT TO ASK FOR INSTRUCTIONS IF HE IS DISCHARGE WITH INSULIN. EXPLAINED TO PATIENT AND THAT HE HAS A BONE INFECTION AND TREATMENT WILL BE FOR APPROX. 6WKS, VERB UNDERSTANDING
[2020-05-05 20:00] VITALS: BP 133/71
--- NOTE | 2020-05-05 20:02 | NUR ---
RECEIEVED REPORT FROM NURSE. PT RESTING IN HIGH FOLWERS UPON ENTERING ROOM. INTRODUCED SELF TO PT AND DISCUSSED POC. ASSESSMENT AND VITALS OBATINED. RESPIRATIONS ARE EVEN AND LUNG SOUNDS ARE STRONG. HEART RHYTHM IS NORMAL. BOWEL SOUNDS ARE HYPOACTIVE, LAST REPORTED BM 05/05/20. RADIAL AND PEDAL PULSES ARE STRONG WITH NORMAL CPAILLARY REFILL. PICC IN URA RUNNING WITH IVF PER ORDER, SITE APPEARS HEALTHY AND PATENT. PT PRESENTS WITH WOUND VAC ON RIGHT FOOT. SUCTION RUNNING AT 125 MMGH ON WOUND VAC, TUBING IS UNKINKED AND DRESSING IS CDI. PT DENIES OF ANY PAIN OR DISCOMFORTS AT THIS TIME. ALL SAFETY AND ISOLATION PRECAUTIONS ARE IN PLACE. WILL CONTINUE TO MONITOR.
[2020-05-06 04:00] VITALS: BP 139/68
[2020-05-06 07:12] VITALS: BP 149/79
--- NOTE | 2020-05-06 08:04 | NUR ---
ASSESSMENT DONE. PT IS A&O X3. PT STATED PAIN IN RIGHT FOOT 8/10 AND HAS NAUSEA. MEDICATED PT WITH DILAUDID AND ZOFRAN. RESPS EVEN AND UNLABORED. PT STATED HE HAS NOT HAD A BM FOR A FEW DAYS. MEDICATED PT WITH MILK OF MAG. IVF INFUSING WELL ON LFA SITE. WOUND VAC AT 125MMHG IN RIGHT FOOT AND DRESSING CDI.SAFETY PRECAUTIONS REINFORCED AND CALL LIGHT IN REACH.
--- NOTE | 2020-05-06 10:30 | NUR ---
DR. NAVARRO IN ROOM TO ASSESS PT. CHANGE RIGHT FOOT TOP DRESSING. STATED FOR WOUND VAC TO BE CHANGE M,W,F. CALL LIGHT IN REACH.
--- NOTE | 2020-05-06 11:06 | NUR ---
AT FIRST IT WAS DIFFICULT TO FLUSH PICC LINE AND NOTIFIED MARYURI YOUSSEF. THEN I WAS ABLE TO GET BLOOD.
--- NOTE | 2020-05-06 15:04 | NUR ---
PT IN ROOM VISITING. PT STATED PAIN IN RIGHT FOOT. MEDICATED PT WITH DILAUDID. RIGHT FOOT WOUND VAC IN PLACE AND SMALL AMOUNT OF RED DRAINAGE NOTED. PT DENIES ANY OTHER NEEDS AT THIS TIME. CALL LIGHT IN REACH.
[2020-05-06 15:27] VITALS: BP 117/70
[2020-05-06 19:30] VITALS: BP 123/72
--- NOTE | 2020-05-06 20:05 | NUR ---
ASSESSMENT AND VITALS COMPLETED AT THIS TIME. RESPIRATIONS ARE EVEN AND UNLABORED AT REST, NO SIGNS OF DISTRESS, O2 SAT 94% ON RA. HEART RHYTHM WAS HEARD NORMAL. BOWEL SOUNDS ARE ACTIVE IN ALL QUADRANTS, LAST REPORTED BM 05/06/20. RADIAL AND PEDAL PULSES ARE STRONG WITH NORMAL CAPILLARY REFILL. PT IS USING THE BSC WITH 1 ASSIST. WOUND VAC HAS A GOOD SEAL ON RIGHT FOOT; HOSES IS NOT KINKED,SUCTION AT 125MMGH. PT DENIES ANY PAIN OR ADDITIONAL NEEDS AT THIS TIME. ALL SAFETY PRECAUTIONS ARE IN PLACE WITH CALL LIGHT IN REACH. WILL CONTINUE TO MONITOR.
[2020-05-07 04:15] VITALS: BP 141/81
[2020-05-07 05:14] LABS: HEMATOCRIT 29.1 % (39.0-50.0); HEMOGLOBIN 9.3 g/dl (14.0-18.0); MEAN CELL VOLUME 93.3 fL CALC (80.0-100.0); MEAN CORPUSCULAR HGB 29.8 pG CALC (26.0-32.0); RED BLOOD COUNT 3.12 mill/uL (4.70-6.10); RED CELL DISTRI WIDTH 13.1 % (11.5-15.5)
[2020-05-07 05:32] LABS: ALKALINE PHOSPHATASE 148 u/l (38-126); ANION GAP 10 (6-22 (CALC)); BUN 12 mg/dL (9-20); BUN/CREATININE RATIO 17 (12-20 (CALC)); CARBON DIOXIDE 27 mmol/l (22-30); CHLORIDE 104 mmol/l (95-108); CREATININE 0.7 mg/dL (0.7-1.3); GFR > 60 ML/MIN (>=60 (CALC)); GFR FOR AFR.AMER. > 60 ML/MIN (>=60 (CALC)); POTASSIUM 4.5 mmol/l (3.5-5.1); SGOT/AST 28 u/l (17-59); SODIUM 136 mmol/l (137-146)
[2020-05-07 05:33] LABS: ALBUMIN 3.2 g/dL (3.2-5.0); BILIRUBIN, TOTAL 0.4 mg/dL (0.0-1.4); TOTAL PROTEIN 7.2 g/dL (6.3-8.2)
[2020-05-07 07:51] VITALS: BP 113/70
--- NOTE | 2020-05-07 07:51 | NUR ---
RECIEVED REPORT FROM IESHA ANDERSON. PT RESTING IN SEMI FOWLERS POSITION UPON ENTERING ROOM. INTRODUCED SELF TO PT AND DISUCSSED POC. PT IS A/O X3 AND ABLE TO EXPRESS NEEDS. PT IS PRIMARLY [place]IVE[place] SPEAKING BUT UNDERSTANDS MALAG[place]. ASSESSMENT AND VITALS OBTAINED. BP 113/70, HR 84, O2 99% ON ROOM AIR. RESPIRATIONS ARE EVEN AND UNLABORED WITH NO SIGNS OF DISTRESS NOTED. LUNG SOUNDS ARE CLEAR. HEART RHYTHM IS NORMAL. BOWEL SOUNDS ARE ACTIVE IN ALL QUADRANTS, LAST REPORETD BM 05/06/2020. RADIAL AND LEFT PEDAL PULSES ARE STRONG WITH NORMAL CAPILLARY REFILL. PT PRESENTS WITH WOUND VAC ON RIGHT FOOT WITH SUCTION AT 125 . DRESSING IS CDI AT THIS TIME. PT IS ABLE TO WIGGLE TOES.PT EDUCATED ON NON WEIGHT BEARING OF RIGHT LEG. PT VERBAILZED UNDERSTANDING. PT COMPLAINS OF 6/10 PAIN OF RIGHT LEG, PT TO BE MEDICATED PER EMAR. GULCOSE RESUTLING IN 114, NO COVERAGE NEEDED. PT DENIES ANY ADDITIONAL NEEDS AT THIS TIME. ALL SAFETY PRECAUTIONS ARE IN PLACE WIHT CALL LIGHT IN REACH. WILL CONTINUE TO MONITOR
--- NOTE | 2020-05-07 09:47 | NUR ---
REASSESSMENT OF PAIN AT THIS TIME. RESUTLING IN 11/13. RESPIRATIONS ARE EVEN AND UNLABORED WITH NO SIGNS OF DISTRESS NOTED. PT DENIES ANY ADDITIONAL NEEDS AT THIS TIME. ALL SAFETY PRECAUTIONS ARE IN PLACE WIHT CALL LIGHT IN REACH. WILL CONTINUE TO MONITOR
--- NOTE | 2020-05-07 12:22 | NUR ---
REASSESSMENT OF PAIN AT THIS TIME RESULTING IN 10/14. RESPIRATIONS ARE EVEN AND UNLABORED WITH NO SIGNS OF DISTRESS NOTED. PT REMAINS A/OX3. IVF FLUIDS RUNNING IN PUSHPA PICC PER ORDER, SITE APPEARS HEALTHY AND PATENT. PICC DRESSING TO BE CHANGED.WOUND VAC IN PLACE, TUBING UNOBSTRUCTED WITH SUCTION. FRESH WATER PROVIDED TO PT. PT DENIES ANY ADDITIONAL NEEDS. ALL SAFETY PRECAUTIONS ARE IN PLACE WITH CALL LIGHT IN REACH. WILL CONTINUE TO MONITOR
--- NOTE | 2020-05-07 13:14 | NUR ---
PICC LINE DRESSING CHANGED AT THIS TIME. PT TOLERATED WELL. DOUBLE LUMEN FUSHED WITH GOOD BLOOD RETURN.
--- NOTE | 2020-05-07 14:28 | NUR ---
PT COMPLAINS OF 8/10 PAIN IN RIGHT FOOT. PT MEDICATED PER EMAR. RESPIRATIONS ARE EVEN AND UNLABORED WITH NO WITH SIGNS OF DISTRESS NOTED. ALL SAFTEY PRECAUTIONS ARE IN PLACE WITH CALL LIGHT IN REACH. WILL CONTINUE TO MONITOR
[2020-05-07 14:45] VITALS: BP 111/56
--- NOTE | 2020-05-07 14:51 | NUR ---
CATHATER BAG CHANGED AT THIS TIME. PT TOLERATED WELL. TUBING REMAINS UNOBSTRUCTED FLOWING IWTH GRAVITY.
--- NOTE | 2020-05-07 14:59 | NUR ---
REASSESSMENT OF PAIN AT THIS TIME. PT STATES HE NO LONGER HAS ANY PAIN. RESPIRATIONS REMAINS EVEN AND UNLABORED WITH NO NEEDS AT THIS TIME. ALL SAFETY PRECAUTIONS REMAINS IN PLACE. WILL CONTINUE TO MONITOR
--- NOTE | 2020-05-07 16:05 | NUR ---
PT SLEEPING IN SEMI FOWLERS POSITION. RESPIRATIONS ARE EVEN AND UNLABORED WITH NO SIGNS OF DISTRESS NOTED. WOUND VAC IN PLACE, TUBING UNOBSTRUCTED. NO SIGNS OF ANY PAIN AT THSI TIME. ALL SAFTEY PRECAUTIONS AR EIN PLACE WIHT CALL LIGHT IN REACH.W ILL CONTINUE TO MONITOR
--- NOTE | 2020-05-07 18:41 | NUR ---
PT COMPLAINS OF INCREASING PAIN IN RIGH FOOT. PT MEDIACTED PER EMAR. RESPIRATIONS ARE EVEN AND UNLABORED WITH NO SIGNS OF DISRTESS NOTED. AT BEDSIDE AT THIS TIME.ALL SAFTEY PRECAUTIONS ARE IN PLACE WITH CALL LIGHT IN REACH. WILL CONTINUE TO MONITOR
[2020-05-07 20:00] VITALS: BP 111/60
--- NOTE | 2020-05-07 20:00 | NUR ---
PATIENT RESTING IN BED AT THIS TIME-TALKING ON THE PHONE. PATIENT IS AWAKE ALERT AND ORIENTEDX3. PATIENT IS MOSTLY [place] SPEAKING. RLE IS ELEVATED ON PILLOWS WITH DRESSING TO RIGHT FOOT CDI. RIGHT FOOT WOUND IS CONNECTED TO WOUND VAC AT 125MMHG ORDERED. CMS TO RIGHT TOES WNL. DOUBLE LUMEN PICC TO RIGHT UPPER ARM INTACT WITH NS PATENT AND INFUSING AT 20CC/HR. UNABLE TO FLUSH PURPLE PORT AT THIS TIME-MET WITH RESISTANCE. SAFETY PRECAUTIONS REINFORCED. CALL LIGHT IN REACH. WILL CONT TO MONITOR.
--- NOTE | 2020-05-07 21:30 | NUR ---
PATIENT RESTING IN BED-C/O RIGHT FOOT PAIN 9/10 ON PAIN SCALE. MEDICATED WITH DILAUDID 1MG IVP FOR PAIN. [id number]. MEDICATED WITH NOVALOG 3UNITS SQ ORDERED. HS SNACK PROVIDED. CALL LIGHT IN REACH. WILL CONT TO MONITOR.
--- NOTE | 2020-05-08 | NUR ---
PATIENT RESTING IN BED WITH RIGHT LE ELEVATED ON PILLOW-RIGHT FOOT DRESSING IS CDI AT THIS TIME HOOKED UP TO THE WOUND VAC AT 125MMHG. PATIENT MEDICATED WITH SCHEDULED PERCOCET 10/325MG PO ORDERED. VOIDING QS [place] URINE IN THE URINAL. CALL LIGHT IN REACH. WILL CONT TO MONITOR.
--- NOTE | 2020-05-08 02:01 | NUR ---
PATIENT RESTING IN BED C/O SEVERE RIGHT FOOT PAIN-10/10 ON PAIN SCALE. MEDICATED WITH DILAUDID 1MG IVP GIVEN FOR PAIN. VOIDED 1000CC OF CLEAR YELLOW URINE. CALL LIGHT IN REACH. WILL CONT TO MONITOR.
[2020-05-08 04:00] VITALS: BP 116/64
--- NOTE | 2020-05-08 06:09 | NUR ---
PATIENT RESTING IN BED-PATIENT WITH NS PATENT AND INFUSING VIA RIGHT UPPER ARM PORT AT 20CC/HR. IVF ARE CONNECTED TO THE RED PORT-FLUSHES WELL WITH GOOD BLOOD RETURN. PURPLE PORT IS SALINE LOCK-UNABLE TO FLUSH-MET RESISTANCE. CALL LIGHT IN REACH. WILL CONT TO MONITOR.
--- NOTE | 2020-05-08 06:59 | NUR ---
REPORT RECEIVED FROM IESHA INMAN. PT RESTING IN BED. NO S/S OF DISTRESS AT THIS TIME. SAFETY PRECAUTIONS IN PLACE. WILL CONTINUE TO MONITOR.
[2020-05-08 07:59] VITALS: BP 138/87
--- NOTE | 2020-05-08 07:59 | NUR ---
PT RESTING IN BED, ALERT AND ORIENTED. RESPIRATIONS ARE EVEN AND UNLABORED ON RA. LUNGS SOUND CLEAR. PEDAL PULSES ARE WEAK. PT REPORTS PAIN BEING 8/10 R FOOT. PT TO BE MEDICATED PER EMAR ORDERS. WOUND VAC IN PLACE. CALL JIMENEZ WITHIN REACH. WILL CONTINUE TO MONTIOR.
--- NOTE | 2020-05-08 08:30 | NUR ---
PT RESTING IN BED. RESPIRATIONS ARE EVEN AND UNLABORED ON RA, LUNGS SOUND CLEAR. PEDAL PULSES ARE WEAK. PT DENIES ANY PAIN OR DISCOMFORT AT THIS TIME. VS OBTAINED. SAFETY PRECAUTIONS IN PLACE. WILL CONTINUE TO MONITOR.
--- NOTE | 2020-05-08 11:55 | NUR ---
PT RESTING IN BED, AT BEDSIDE. WOUND CARE NURSES AND KEG FILLER AT BEDSIDE TO CHANGE WOUND VAC PER MD ORDERS. PT MEDICATED FOR PAIN PER EMAR ORDERS. DRESSING REMOVED, WOUND CLENSED WITH SALINE, NEW WOUND VAC DRESSING APPLIED. PT TOLERATED WELL. SAFETY PRECAUTIONS IN PLACE. WILL CONTINUE TO MONITOR.
--- NOTE | 2020-05-08 13:30 | NUR ---
PT RESTING IN BED WITH EYES CLOSED. NO S/S OF DISTRESS AT THIS TIME. SAFETY PRECAUTIONS IN PLACE.
[2020-05-08 15:00] VITALS: BP 98/55
--- NOTE | 2020-05-08 17:50 | NUR ---
DR GUSMAN CONSULTED VIA ZOOM
[2020-05-08 18:51] VITALS: BP 114/65
--- NOTE | 2020-05-08 19:30 | NUR ---
PATIENT RESTING IN BED AT THIS TIME-MEDICATED WITH DILAUDID 1MG IVP FOR RIGHT FOOT PAIN-8/10 ON PAIN SCALE. [id number] WITH NOVALOG 3UNITS PER SLIDING SCALE COVERAGE PROTOCOL. RIGHT FOOT REMAINS ELEVATED ON PILLOWS. CALL LIGHT IN REACH. WILL CONT TO MONITOR.
--- NOTE | 2020-05-08 19:45 | NUR ---
PATIENT IS RESTING IN BED-AWAKE ALERT AND ORIENTEDX3. PATIENT ASKING FOR PAIN MEDS-WAS JUST MEDICATED 30MIN EARLIER. PATIENT ADVISED THAT IT IS TOO EARLY FOR PAIN MEDS AT THIS TIME. STATES THAT HIS PAIN IS STILL 10/10 ON PAIN SCALE. RIGHT FOOT ELEVATED ON PILLOWS. WOUND VAC INTACT TO RIGHT FOOT WOUND AT 125MMHG CONT. DRESSING TO RIGHT FOOT IS CDI. RIGHT UPPER ARM PICC INTACT WITH IVF NS PATENT AND INFUSING AT 20CC/HR. DAPTO INFUSING AT THIS TIME. SITE IS HEALTHY AT THIS TIME. CALL LIGHT IN REACH. WILL CONT TO MONITOR.
--- NOTE | 2020-05-09 | NUR ---
PATIENT RESTING IN BED AT THIS TIME-MEDICATED WITH SCHEDULED PERCOCET-8/10 ON PAIN SCALE. RIGHT FOOT ELEVATED ON PILLOWS. DRESSING TO RIGHT FOOT CDI-WOUND VAC IN PLACE WITH MINIMAL DRAINAGE NOTED. IVF NS PATENT AND INFUSING VIA RIGHT UPPER ARM PICC. SITE IS HEALTHY AT THIS TIME. PATIENT IS VOIDING CLEAR YELLOW URINE IN URINAL. CALL LIGHT IN REACH. WILL CONT TO MONITOR.
--- NOTE | 2020-05-09 04:54 | NUR ---
PATIENT RESTING IN BED AT THIS TIME. LAB WORK DRAWN FROM RED PORT ON DOUBLE LUIMEN PICC-GOOD BLOOD RETURN AND FLUSHED PER PROTOCOL WITH HEP SOLUTION AFTER LABS DRAWN. IVF NS PATENT AND INFUSING AT 20CC/HR. PURPLE PORT ON PICC-UNABLE TO FLUSH-MET WITH RESISTANCE. SITE IS HEALTHY AT THIS TIME. RIGHT FOOT ELEVATED ON PILLOWS. WOUND VAC TO RIGHT FOOT WOUND AT 125MMHG CONT ORDERED. MINIMAL DRAINAGE NOTED. DRESSING TO RIGHT FOOT CDI.PATIENT MEDICATED FOR PAIN TO RIGHT FOOT-8/10 ON PAIN SCALE WITH DILAUDID 1MG IVP FOR PAIN. CALL LIGHT IN REACH. WILL CONT TO MONITOR.
[2020-05-09 05:09] VITALS: BP 109/66
[2020-05-09 05:26] LABS: HEMATOCRIT 30.3 % (39.0-50.0); HEMOGLOBIN 9.7 g/dl (14.0-18.0); MEAN CELL VOLUME 92.7 fL CALC (80.0-100.0); MEAN CORPUSCULAR HGB 29.7 pG CALC (26.0-32.0); RED BLOOD COUNT 3.27 mill/uL (4.70-6.10); RED CELL DISTRI WIDTH 13.2 % (11.5-15.5)
[2020-05-09 06:01] LABS: ANION GAP 11 (6-22 (CALC)); BUN 14 mg/dL (9-20); BUN/CREATININE RATIO 20 (12-20 (CALC)); CARBON DIOXIDE 28 mmol/l (22-30); CHLORIDE 102 mmol/l (95-108); CPK 29 u/l (52-200); CREATININE 0.7 mg/dL (0.7-1.3); GFR > 60 ML/MIN (>=60 (CALC)); GFR FOR AFR.AMER. > 60 ML/MIN (>=60 (CALC)); POTASSIUM 4.7 mmol/l (3.5-5.1); SODIUM 137 mmol/l (137-146)
[2020-05-09 08:33] VITALS: BP 102/61
--- NOTE | 2020-05-09 08:53 | NUR ---
DR ADEN AT BEDSIDE WITH Kp DHALIWAL APRN DISCUSSING POC
--- NOTE | 2020-05-09 11:45 | NUR ---
PT LAYING IN BED. NO DISTRESS OR NEEDS AT THIS TIME. C/O PAIN 02/13, SCHEDULED PERCOCET GIVEN. CALL LIGHT IN REACH. CONTINUE TO MONITOR.
[2020-05-09 14:45] VITALS: BP 110/62
--- NOTE | 2020-05-09 17:06 | NUR ---
ORDER FOR CATH FLOW REC DUE TO PURPLE PORT NOT FLUSHING. PORT FLUSHED WITH CATH FLOW PER ORDER. WILL REASSESS.
--- NOTE | 2020-05-09 17:46 | NUR ---
PURPLE LUMEN ASPIRATED BLOOD WITH EASE. 10 CC OF BLOOD WASTED, THEN FLUSHED WITH 10 CC OF NS, FLUSHED WITH EASE.
[2020-05-09 18:43] VITALS: BP 110/60
--- NOTE | 2020-05-09 19:44 | NUR ---
PATIENT SITTING UP ON THE SIDE OF THE BED-AWAKE ALERT AND ORIENTEDX3. O2 VIA NASAL CANNULA IN PLACE. PATIENT IS SOB AT REST. TELE MONITOR IN PLACE. LONGORIA CATH PATENT AND DRAINING YELLOW URINE-LEG STRAP IN PLACE TO RIGHT THIGH. LUNGS STILL WITH FINE CRACKLES TO KERRIE BASES. ABD SOFT WITH BM TODAY. GENERALIZED BODY EDEMA NOTED. ASSISTED PATIENT BACK INTO BED. POSITIONED ON HER LEFT SIDE. SAFETY PRECAUTIONS REINFORCED. CALL LIGHT IN REACH. WILL CONT TO MONITOR.
--- NOTE | 2020-05-09 21:10 | NUR ---
PATIENT RESTING IN BED TALKING ON THE PHONE. AWAKE ALERT AND ORIENTEDX3. PATIENT IS MOSTLY [place] SPEAKING. PATIENT WITH RIGHT UPPER ARM PICC WITH IVF NS PATENT AND INFUSING AT 20CC/HR. RIGHT LE ELEVATED ON PILLOWS. WOUND VAC INTACT TO RIGHT FOOT ULCER AT 125MMHG CONT. DRESSING INTACT TO RIGHT FOOT. CMS TO RIGHT TOES WNL. VOIDING QS YELLOW URINE IN URINAL. STATES THAT HE HAD BM TODAY. LUNGS ARE CLEAR. MEDICATED FOR PAIN WITH DILAUDID 1MG FOR 8/10 PAIN SCALE. SAFETY PRECAUTIONS REINFORCED. CALL LIGHT IN REACH. WILL CONT TO MONITOR.
--- NOTE | 2020-05-09 23:52 | NUR ---
PATIENT RESTING IN BED-MEDICATED WITH PERCOCET 10/325MG PO FOR 8/10 PAIN SCALE. WOUND VAC INTACT TO RIGHT FOOT ORDERED. RIGHT FOOT ELEVATED ON PILLOWS. IVF PATENT AND INFUSING VIA RIGHT UPPER ARM PICC. SITE IS HEALTHY. VOIDING CLEAR YELLOW URINE IN URINAL. CALL LIGHT IN REACH. WILL CONT TO MONITOR.
[2020-05-10 03:40] VITALS: BP 126/71
--- NOTE | 2020-05-10 03:42 | NUR ---
PATIENT RESTING IN BED AT THIS TIME-C/O RIGHT FOOT PAIN-9/10 ON PAIN SCALE. MEDICATED WITH DILAUDID 1MG IVP FOR PAIN. VOIDED 500CC OF CLEAR YELLOW URINE IN URINAL. NS PATENT AND INFUSING VIA RIGHT UPPER ARM PICC. RIGHT FOOT ELEVATED ON PILLOWS-ATTATCHED TO WOUND VAC AT 125MMHG CONT. DRESSING TO RIGHT FOOT CDI. CALL LIGHT IN REACH. WILL CONT TO MONITOR.
[2020-05-10 07:45] VITALS: BP 116/66
--- NOTE | 2020-05-10 07:45 | NUR ---
RECIEVED REORT FROM IESHA FRANK. PT SLEEPING IN SEMI FOWLERS POSITION UPON ENETRING ROOM. INTRODUCED SELF TO PT AND DISCUSSED POC. PT IS [place] SPEAKING MAINLY BUT DOES UNDERSTAND [place]. PT IS A/O X3. ASESSMENT AND VITALS COMPLETED AT THIS TIME. BP 116/66, HR 77, O2 96% ON ROOM AIR. RESPIRATIONS ARE EVEN AND UNLABORED WITH NO SIGNS OF DISRTESS NOTED. LUNG SOUNDS ARE CLEAR. HEART RHYTHM IS NORMAL. BOWEL SOUNDS ARE ACTIVE IN ALL QUADRANTS, LAST RPORETD BM 05/09/2020. RADIAL AND PEDAL PULSES. DOUBLE LUMEN PICC FLUSHED WITH GOOD BLOOD RETURN. IVF RUNNING PER ORDER, SITE APPEARS HEALTHY AND PATENT. WOUND VAC PRESENTS ON RIGHT FOOT, TUBING IS UNKINKED WITH SUCTION AT 125. DRESSING REMAINS CDI AT THIS TIME. PT COMPLAINS OF 9/10 PAIN. PT TO BE MEDIACTED PER EMAR. PT DENIES ANY ADDITIONAL NEEDS AT THIS TIME. ALL SAFETY PRECAUTIONS ARE IN PLACE WITH CALL LIGHT IN REACH.W ILL CONTINUE TO MONITOR
--- NOTE | 2020-05-10 08:36 | NUR ---
DR ADEN AT BEDSIDE DISCUSSING POC
[2020-05-10] MEDS ORDERED: ROCEPHIN1 G1 IV (11:41)
[2020-05-10] MEDS ORDERED: HEPARIN LOC1 UNIT/ML IV ×2 (11:41→12:35)
[2020-05-10] MEDS ORDERED: NOVOLIN 70/30 SC (12:02)
[2020-05-10] MEDS ORDERED: PERCOCET 10/31 COMBO PO (12:02)
--- NOTE | 2020-05-10 12:31 | NUR ---
PT COMPLAINS OF PAIN OF RIGHT LEG, PERCOCET TO BE ADMINISTERED. RESPIRATIONS ARE EVEN AND UNLABORED WITH NO SIGNS OF DISTRESS NOTED. PT REMAINS A/O X3. WOUND VAC TO RIGHT FOFOT IN PLACE WITH SUCTION AT 125. ALL SAFETY PRECAUTIONS REMAINS IN PLEC WITH CALL LIGHT IN REACH. WILL CONTINUE TO MONITOR
[2020-05-10] MEDS ORDERED: [UNRECOGNIZED DRUG - OTHER] IV (12:33)
--- NOTE | 2020-05-10 13:00 | NUR ---
WOUND VAC CHANGED AND PORTABLE APPLIED. PT TOLERATED WELL. PT COMPAINS OF PAIN. PT TO BE MEDICATED PER EMAR.
[2020-05-10 15:39] VITALS: BP 118/66
--- NOTE | 2020-05-10 15:50 | NUR ---
PT AND EDUCTAED ON DISCHARGE INSTRUCTIONS. TRANSLATION PROVIDED BY [facility] IN [place]. PT AND VERBALIZED UNDERSTANDING. DOUBLE LUMEN PICC REMAINS IN PLACE. AWA[facility]NG FOR TRANSPORTATION
--- NOTE | 2020-05-10 16:00 | NUR ---
Discharge instructions given. Patient verbalizes understanding of same. Discharged in stable condition via Wheelchair to Home with family. All belongings sent with pt. PT LEFT WITH ALL DISCHARGE PAPERWORK AND NEW MED SCRIPTS. PT LEFT VIA WHEELCHAIR ACCOMPAINED BY TERESITA AYALA AND .
== END 2020-05-10 15:55 | disposition home or self-care (01) | DRG 617 ==
LOC: ED 20:31 → ED-I 21:45 → ED 22:05 → MS2 22:06
PROVIDERS: Family Medicine; Nurse Practitioner; Nurse Practitioner Family; ADMIT Internal Medicine; ATTEND Internal Medicine
PROC: 0JBQ0ZZ Excision of Right Foot Subcutaneous Tissue and Fascia, Open Approach (ICD-10-PCS; 2020-04-28)
PROC: 0Y6V0Z0 Detachment at Right 4th Toe, Complete, Open Approach (ICD-10-PCS; principal; 2020-05-01)
PROC: 0JBQ0ZZ Excision of Right Foot Subcutaneous Tissue and Fascia, Open Approach (ICD-10-PCS; 2020-05-01)
PROC: 02HV33Z Insertion of Infusion Device into Superior Vena Cava, Percutaneous Approach (ICD-10-PCS; 2020-05-02)
PROC: B5181ZA Fluoroscopy of Superior Vena Cava using Low Osmolar Contrast, Guidance (ICD-10-PCS; 2020-05-02)
PROC: 0J9Q0ZZ Drainage of Right Foot Subcutaneous Tissue and Fascia, Open Approach (ICD-10-PCS; 2020-05-05)
PROC: 0JBQ0ZZ Excision of Right Foot Subcutaneous Tissue and Fascia, Open Approach (ICD-10-PCS; 2020-05-05)
DX: E11.69 Type 2 diabetes mellitus with other specified complication (principal); M86.171 Other acute osteomyelitis, right ankle and foot; L97.418 Non-pressure chronic ulcer of right heel and midfoot with other specified severity; L02.611 Cutaneous abscess of right foot; L03.115 Cellulitis of right lower limb; T79.7XXA Traumatic subcutaneous emphysema, initial encounter; Z16.23 Resistance to quinolones and fluoroquinolones; E11.621 Type 2 diabetes mellitus with foot ulcer; D64.9 Anemia, unspecified; E11.628 Type 2 diabetes mellitus with other skin complications; E11.65 Type 2 diabetes mellitus with hyperglycemia; Z20.828 Contact with and (suspected) exposure to other viral communicable diseases; B96.20 Unspecified Escherichia coli [E. coli] as the cause of diseases classified elsewhere; S91.311A Laceration without foreign body, right foot, initial encounter; F17.210 Nicotine dependence, cigarettes, uncomplicated; W11.XXXA Fall on and from ladder, initial encounter; Z79.01 Long term (current) use of anticoagulants; Z79.4 Long term (current) use of insulin; Z79.891 Long term (current) use of opiate analgesic
CPT/HCPCS: A9579; J0131; J1650; J1756; J2997; J3370

== ENCOUNTER 2020-05-22 16:09 | Emergency (ER) | payer MEDICAID ==
[~2020-05-22] VITALS: Ht 175.3 cm; Wt 60.0 kg
[~2020-05-22 16:09] MED LIST changes: +HEPARIN LOC1 UNIT/ML IV; +HYDROCODONE BIT1 TA9 PO; +KEFLEX500 MG PO; +NOVOLIN 70/30 SC; +PERCOCET 10/31 COMBO PO; +ROCEPHIN1 G1 IV; +[UNRECOGNIZED DRUG - OTHER] IV
[2020-05-22 16:48] VITALS: BP 138/77
== END 2020-05-22 16:48 | disposition home or self-care (01) ==
LOC: ED 16:09
DX: T82.594A Other mechanical complication of infusion catheter, initial encounter (principal); E11.9 Type 2 diabetes mellitus without complications; F17.200 Nicotine dependence, unspecified, uncomplicated; Z79.4 Long term (current) use of insulin; Y83.8 Other surgical procedures as the cause of abnormal reaction of the patient, or of later complication, without mention of misadventure at the time of the procedure

== ENCOUNTER 2020-06-04 20:42 | Emergency (ER) | payer MEDICAID ==
[~2020-06-04] VITALS: Ht 175.3 cm; Wt 68.0 kg
[2020-06-04 22:30] VITALS: BP 130/66
== END 2020-06-04 22:30 | disposition home or self-care (01) ==
LOC: ED 20:42
DX: Z48.03 Encounter for change or removal of drains (principal); E11.9 Type 2 diabetes mellitus without complications; F17.200 Nicotine dependence, unspecified, uncomplicated; Z79.4 Long term (current) use of insulin

== ENCOUNTER 2020-09-24 13:48 | Emergency (ER) | payer OTHER ==
[~2020-09-24] VITALS: Ht 175.3 cm; Wt 77.2 kg
[2020-09-24] MEDS ORDERED: CIPROFLOXACN500 MG PO (15:21)
[2020-09-24 15:38] VITALS: BP 149/74
== END 2020-09-24 15:40 | disposition home or self-care (01) ==
LOC: ED 13:48
DX: S91.201A Unspecified open wound of right great toe with damage to nail, initial encounter (principal); E11.9 Type 2 diabetes mellitus without complications; W22.8XXA Striking against or struck by other objects, initial encounter; Y92.009 Unspecified place in unspecified non-institutional (private) residence as the place of occurrence of the external cause; Z79.4 Long term (current) use of insulin

== ENCOUNTER 2021-02-02 18:37 | Inpatient (IN) | payer OTHER ==
[~2021-02-02] VITALS: Ht 175.3 cm; Wt 76.0 kg
[~2021-02-02 18:37] MED LIST changes: +CIPROFLOXACN500 MG PO
[2021-02-02 19:46] LABS: HEMATOCRIT 34.9 % (39.0-50.0); HEMOGLOBIN 11.6 g/dl (14.0-18.0); IMMATURE GRANULOCYTES 0.1 % (0.0-5.0); MEAN CORPUSCULAR HGB CONC 33.2 g/dL CAL (32.0-36.0); NEUT# 6.25 thou/uL (1.82-7.42); RED BLOOD COUNT 3.74 mill/uL (4.70-6.10); RED CELL DISTRI WIDTH 12.7 % (11.5-15.5)
[2021-02-02 19:48] LABS: MEAN CELL VOLUME 93.3 fL CALC (80.0-100.0)
[2021-02-02 20:00] LABS: ALBUMIN 3.5 g/dL (3.2-5.0); ANION GAP 12 (6-22 (CALC)); BILIRUBIN, TOTAL 0.3 mg/dL (0.0-1.4); BUN 16 mg/dL (9-20); BUN/CREATININE RATIO 27 (12-20 (CALC)); CARBON DIOXIDE 27 mmol/l (22-30); CHLORIDE 104 mmol/l (95-108); CREATININE 0.6 mg/dL (0.7-1.3); GFR > 60 ML/MIN (>=60 (CALC)); GFR FOR AFR.AMER. > 60 ML/MIN (>=60 (CALC)); POTASSIUM 4.6 mmol/l (3.5-5.1); SGOT/AST 19 u/l (17-59); SODIUM 138 mmol/l (137-146); TOTAL PROTEIN 6.5 g/dL (6.3-8.2)
[2021-02-02 20:04] LABS: ALKALINE PHOSPHATASE 70 u/l (38-126)
[2021-02-02 20:38] LABS: URINE BILIRUBIN - DIPSTICK NEGATIVE (NEGATIVE); URINE BLOOD DIPSTICK MODERATE (NEGATIVE); URINE COLOR YELLOW; URINE GLUCOSE - DIPSTICK 500 mg/dL (NEGATIVE); URINE KETONE NEGATIVE (NEGATIVE); URINE LEUK ESTERASE NEGATIVE (NEGATIVE); URINE PROTEIN - DIPSTICK 30 mg/dL (NEG-TRACE); URINE SPECIFIC GRAVITY 1.025; URINE UROBILINOGEN - DIPSTICK 0.2 E.U./dL (0.2)
[2021-02-02 20:41] LABS: URINE NITRITE - DIPSTICK NEGATIVE (Negative)
[2021-02-02 20:46] LABS: URINE SQUAMOUS EPITHELIAL CELL FEW EPI/hpf (0-FEW)
[2021-02-02 22:02] VITALS: BP 126/69
[2021-02-03 04:02] VITALS: BP 109/72
[2021-02-03 06:24] LABS: HEMATOCRIT 34.5 % (39.0-50.0); HEMOGLOBIN 11.6 g/dl (14.0-18.0); IMMATURE GRANULOCYTES 0.1 % (0.0-5.0); MEAN CORPUSCULAR HGB 31.3 pG CALC (26.0-32.0); MEAN CORPUSCULAR HGB CONC 33.6 g/dL CAL (32.0-36.0); NEUT# 4.94 thou/uL (1.82-7.42); RED BLOOD COUNT 3.71 mill/uL (4.70-6.10); RED CELL DISTRI WIDTH 12.8 % (11.5-15.5)
[2021-02-03 06:33] LABS: ANION GAP 9 (6-22 (CALC)); BUN 11 mg/dL (9-20); BUN/CREATININE RATIO 20 (12-20 (CALC)); CARBON DIOXIDE 28 mmol/l (22-30); CHLORIDE 104 mmol/l (95-108); CREATININE 0.6 mg/dL (0.7-1.3); GFR > 60 ML/MIN (>=60 (CALC)); GFR FOR AFR.AMER. > 60 ML/MIN (>=60 (CALC)); SODIUM 137 mmol/l (137-146)
[2021-02-03] MEDS ORDERED: ATORVASTATIN CA20 MG PO (07:13)
[2021-02-03] MEDS ORDERED: METFORMIN500 M2 PO (07:13)
[2021-02-03] MEDS ORDERED: GABAPENTIN300 M2 PO (07:13)
[2021-02-03 08:10] VITALS: BP 109/66
[2021-02-03 15:00] VITALS: BP 113/66
[2021-02-03 19:04] VITALS: BP 128/61
[2021-02-04 04:00] VITALS: BP 113/68
[2021-02-04 05:40] LABS: HEMATOCRIT 35.9 % (39.0-50.0); HEMOGLOBIN 11.9 g/dl (14.0-18.0); MEAN CELL VOLUME 92.3 fL CALC (80.0-100.0); MEAN CORPUSCULAR HGB 30.6 pG CALC (26.0-32.0); MEAN CORPUSCULAR HGB CONC 33.1 g/dL CAL (32.0-36.0); RED BLOOD COUNT 3.89 mill/uL (4.70-6.10); RED CELL DISTRI WIDTH 12.5 % (11.5-15.5)
[2021-02-04 06:05] LABS: ALBUMIN 3.2 g/dL (3.2-5.0); ALKALINE PHOSPHATASE 62 u/l (38-126); ANION GAP 9 (6-22 (CALC)); BILIRUBIN, TOTAL 0.1 mg/dL (0.0-1.4); BUN 12 mg/dL (9-20); BUN/CREATININE RATIO 19 (12-20 (CALC)); CARBON DIOXIDE 28 mmol/l (22-30); CHLORIDE 105 mmol/l (95-108); CREATININE 0.6 mg/dL (0.7-1.3); GFR > 60 ML/MIN (>=60 (CALC)); GFR FOR AFR.AMER. > 60 ML/MIN (>=60 (CALC)); POTASSIUM 4.2 mmol/l (3.5-5.1); SGOT/AST 17 u/l (17-59); SODIUM 137 mmol/l (137-146); TOTAL PROTEIN 6.1 g/dL (6.3-8.2)
[2021-02-04 08:00] VITALS: BP 123/77
[2021-02-04 15:33] VITALS: BP 124/68
[2021-02-04 19:31] VITALS: BP 114/65
[2021-02-04 23:31] VITALS: BP 115/60
[2021-02-05 03:48] VITALS: BP 126/65
[2021-02-05 07:16] VITALS: BP 122/76
[2021-02-05 15:42] VITALS: BP 140/78
[2021-02-05 19:09] VITALS: BP 139/79
[2021-02-06] VITALS (10 sets, daily range): BP systolic 110–144; BP diastolic 56–81
[2021-02-06 05:35] LABS: HEMATOCRIT 37.7 % (39.0-50.0); HEMOGLOBIN 12.5 g/dl (14.0-18.0); MEAN CORPUSCULAR HGB 30.5 pG CALC (26.0-32.0); MEAN CORPUSCULAR HGB CONC 33.2 g/dL CAL (32.0-36.0); RED BLOOD COUNT 4.1 mill/uL (4.70-6.10); RED CELL DISTRI WIDTH 12.3 % (11.5-15.5)
[2021-02-06 05:41] LABS: ANION GAP 12 (6-22 (CALC)); BUN 13 mg/dL (9-20); BUN/CREATININE RATIO 19 (12-20 (CALC)); CARBON DIOXIDE 25 mmol/l (22-30); CHLORIDE 105 mmol/l (95-108); CREATININE 0.7 mg/dL (0.7-1.3); GFR > 60 ML/MIN (>=60 (CALC)); GFR FOR AFR.AMER. > 60 ML/MIN (>=60 (CALC)); SODIUM 138 mmol/l (137-146)
[2021-02-07] VITALS: BP 126/79
[2021-02-07 04:28] VITALS: BP 135/82
[2021-02-07 05:43] LABS: HEMATOCRIT 36.2 % (39.0-50.0); MEAN CELL VOLUME 92.3 fL CALC (80.0-100.0); MEAN CORPUSCULAR HGB 30.6 pG CALC (26.0-32.0); MEAN CORPUSCULAR HGB CONC 33.1 g/dL CAL (32.0-36.0); RED BLOOD COUNT 3.92 mill/uL (4.70-6.10); RED CELL DISTRI WIDTH 12.4 % (11.5-15.5)
[2021-02-07 06:03] LABS: ANION GAP 9 (6-22 (CALC)); BUN 9 mg/dL (9-20); BUN/CREATININE RATIO 15 (12-20 (CALC)); CARBON DIOXIDE 28 mmol/l (22-30); CHLORIDE 105 mmol/l (95-108); CREATININE 0.6 mg/dL (0.7-1.3); GFR > 60 ML/MIN (>=60 (CALC)); GFR FOR AFR.AMER. > 60 ML/MIN (>=60 (CALC)); SODIUM 137 mmol/l (137-146)
[2021-02-07 07:30] VITALS: BP 123/63
[2021-02-07 11:51] VITALS: BP 130/75
[2021-02-07 17:17] VITALS: BP 124/72
[2021-02-07 19:00] VITALS: BP 162/80
[2021-02-08 05:11] VITALS: BP 120/66
[2021-02-08 05:18] LABS: HEMATOCRIT 36.2 % (39.0-50.0); HEMOGLOBIN 12.1 g/dl (14.0-18.0); MEAN CELL VOLUME 91.9 fL CALC (80.0-100.0); MEAN CORPUSCULAR HGB 30.7 pG CALC (26.0-32.0); MEAN CORPUSCULAR HGB CONC 33.4 g/dL CAL (32.0-36.0); RED BLOOD COUNT 3.94 mill/uL (4.70-6.10); RED CELL DISTRI WIDTH 12.5 % (11.5-15.5)
[2021-02-08 05:32] LABS: ANION GAP 10 (6-22 (CALC)); BUN 11 mg/dL (9-20); BUN/CREATININE RATIO 17 (12-20 (CALC)); CARBON DIOXIDE 27 mmol/l (22-30); CHLORIDE 103 mmol/l (95-108); CREATININE 0.6 mg/dL (0.7-1.3); GFR > 60 ML/MIN (>=60 (CALC)); GFR FOR AFR.AMER. > 60 ML/MIN (>=60 (CALC)); SODIUM 137 mmol/l (137-146)
[2021-02-08 07:30] VITALS: BP 127/77
[2021-02-08] MEDS ORDERED: KEFLEX500 MG PO (09:53)
[2021-02-08] MEDS ORDERED: HYDROCO/APAP1 TA9 PO (09:55)
== END 2021-02-08 12:26 | disposition home or self-care (01) | DRG 988 ==
LOC: ED 18:37 → ED-I 19:52 → ED 19:52 → ED-I 20:22 → ED 20:33 → MS2 20:34
PROVIDERS: Family Medicine; Nurse Practitioner; Nurse Practitioner Family; ADMIT Internal Medicine; ATTEND Internal Medicine
PROC: 0J9R0ZZ Drainage of Left Foot Subcutaneous Tissue and Fascia, Open Approach (ICD-10-PCS; principal; 2021-02-06)
DX: E11.628 Type 2 diabetes mellitus with other skin complications (principal); L97.429 Non-pressure chronic ulcer of left heel and midfoot with unspecified severity; L02.612 Cutaneous abscess of left foot; L03.116 Cellulitis of left lower limb; E11.621 Type 2 diabetes mellitus with foot ulcer; F17.200 Nicotine dependence, unspecified, uncomplicated; B95.1 Streptococcus, group B, as the cause of diseases classified elsewhere; Z79.4 Long term (current) use of insulin; Z89.421 Acquired absence of other right toe(s); Z20.822 Contact with and (suspected) exposure to COVID-19
CPT/HCPCS: A9579; J1650; J3370; Q3014

== ENCOUNTER 2021-09-28 10:24 | Day surgery (SDC) | payer OTHER ==
[~2021-09-28] VITALS: Ht 175.3 cm; Wt 79.4 kg
[~2021-09-28 10:24] MED LIST changes: +ATORVASTATIN CA20 MG PO; +GABAPENTIN300 M2 PO; +HYDROCO/APAP1 TA9 PO; +LEVEMIR100 UNIT SC; +METFORMIN500 M2 PO
[2021-09-28 13:50] VITALS: BP 103/74
== END 2021-09-28 14:06 | disposition home or self-care (01) ==
LOC: ORM 10:24
PROVIDERS: ATTEND Podiatrist Foot & Ankle Surgery
DX: S91.301A Unspecified open wound, right foot, initial encounter (principal); L03.115 Cellulitis of right lower limb; M67.01 Short Achilles tendon (acquired), right ankle; X58.XXXA Exposure to other specified factors, initial encounter; E11.40 Type 2 diabetes mellitus with diabetic neuropathy, unspecified; Z89.421 Acquired absence of other right toe(s)
CPT/HCPCS: J0131

== ENCOUNTER 2022-02-06 09:01 | Emergency (ER) | payer OTHER ==
[~2022-02-06] VITALS: Ht 175.3 cm; Wt 73.0 kg
[2022-02-06 09:06] VITALS: BP 104/55
[2022-02-06] MEDS ORDERED: MUPIROCIN21 TOP (09:13)
[2022-02-06] MEDS ORDERED: DOXYCYCL HYC100 M4 PO (09:13)
[2022-02-06 09:30] VITALS: BP 108/65
== END 2022-02-06 09:52 | disposition home or self-care (01) ==
LOC: ED 09:01
DX: S91.104A Unspecified open wound of right lesser toe(s) without damage to nail, initial encounter (principal); E11.9 Type 2 diabetes mellitus without complications; B95.2 Enterococcus as the cause of diseases classified elsewhere; X58.XXXA Exposure to other specified factors, initial encounter; Z79.84 Long term (current) use of oral hypoglycemic drugs; Z79.4 Long term (current) use of insulin

== ENCOUNTER 2022-07-26 20:43 | Emergency (ER) | payer OTHER ==
[~2022-07-26] VITALS: Ht 175.3 cm; Wt 84.0 kg
[~2022-07-26 20:43] MED LIST changes: +DOXYCYCL HYC100 M4 PO; +MUPIROCIN21 TOP
[2022-07-26 21:38] VITALS: BP 143/91
[2022-07-26 21:45] VITALS: BP 151/92
[2022-07-26 22:00] VITALS: BP 140/86
[2022-07-26] MEDS ORDERED: ULTRAM50 MG PO (22:03)
[2022-07-26] MEDS ORDERED: KEFLEX500 MG PO (22:03)
[2022-07-26 22:27] VITALS: BP 140/86
== END 2022-07-26 22:33 | disposition home or self-care (01) ==
LOC: ED 20:43
DX: S91.332A Puncture wound without foreign body, left foot, initial encounter (principal); E11.9 Type 2 diabetes mellitus without complications; W22.8XXA Striking against or struck by other objects, initial encounter; Y92.009 Unspecified place in unspecified non-institutional (private) residence as the place of occurrence of the external cause; Z79.4 Long term (current) use of insulin; Z79.84 Long term (current) use of oral hypoglycemic drugs

== ENCOUNTER 2022-08-14 08:22 | Inpatient (IN) | payer OTHER ==
[~2022-08-14] VITALS: Ht 175.3 cm; Wt 82.4 kg
[~2022-08-14 08:22] MED LIST changes: +ULTRAM50 MG PO
[2022-08-14 08:39] VITALS: BP 148/92
[2022-08-14 09:00] VITALS: BP 149/97
[2022-08-14 09:31] VITALS: BP 147/88
[2022-08-14 09:31] LABS: BASO% 0.8 % (0-3); HEMATOCRIT 36.1 % (39.0-50.0); HEMOGLOBIN 12.1 g/dl (14.0-18.0); LYMPH% 21.5 % (15-41); MEAN CELL VOLUME 88.3 fL CALC (80.0-100.0); MEAN CORPUSCULAR HGB 29.6 pG CALC (26.0-32.0); MEAN CORPUSCULAR HGB CONC 33.5 g/dL CAL (32.0-36.0); MONO% 9.2 % (2-13); NEUT# 5.14 thou/uL (1.82-7.42); NEUT% 68.5 % (42-76); RED BLOOD COUNT 4.09 mill/uL (4.70-6.10); RED CELL DISTRI WIDTH 12.2 % (11.5-15.5)
[2022-08-14 09:39] LABS: ALBUMIN 3.4 g/dL (3.2-5.0); ALKALINE PHOSPHATASE 106 u/l (38-126); ANION GAP 10 (6-22 (CALC)); BUN 23 mg/dL (9-20); BUN/CREATININE RATIO 33 (12-20 (CALC)); CARBON DIOXIDE 27 mmol/l (22-30); CHLORIDE 104 mmol/l (95-108); CREATININE 0.7 mg/dL (0.7-1.3); GFR FOR AFR.AMER. > 60 ML/MIN (>=60 (CALC)); GFR OTHER RACES > 60 ML/MIN (>=60 (CALC)); POTASSIUM 4.5 mmol/l (3.5-5.1); SGOT/AST 22 u/l (17-59); SODIUM 136 mmol/l (137-146); TOTAL PROTEIN 6.3 g/dL (6.3-8.2)
[2022-08-14 09:41] LABS: BILIRUBIN, TOTAL 0.1 mg/dL (0.2-1.3)
[2022-08-14 10:00] VITALS: BP 136/76
[2022-08-14] MEDS ORDERED: CIPROFLOXACN500 MG PO (12:35)
[2022-08-14] MEDS ORDERED: DOXYCYCL HYC100 M4 PO (12:35)
[2022-08-14] MEDS ORDERED: NAPROXEN250 MG PO (12:36)
[2022-08-14] MEDS ORDERED: LIPITOR40 M1 PO (12:37)
[2022-08-14] MEDS ORDERED: GABAPENTIN100 MG PO (12:37)
[2022-08-14 15:48] VITALS: BP 147/80
[2022-08-14 19:34] VITALS: BP 145/87
[2022-08-15] VITALS (10 sets, daily range): BP systolic 115–173; BP diastolic 69–100
[2022-08-15 06:31] LABS: MAGNESIUM 1.8 mg/dL (1.6-2.3)
[2022-08-16 03:31] VITALS: BP 113/72
[2022-08-16 05:24] LABS: BASO% 0.7 % (0-3); HEMATOCRIT 31.5 % (39.0-50.0); HEMOGLOBIN 10.4 g/dl (14.0-18.0); LYMPH% 28.6 % (15-41); MEAN CELL VOLUME 89.7 fL CALC (80.0-100.0); MEAN CORPUSCULAR HGB 29.6 pG CALC (26.0-32.0); MONO% 9.1 % (2-13); NEUT# 4.94 thou/uL (1.82-7.42); NEUT% 61.6 % (42-76); RED BLOOD COUNT 3.51 mill/uL (4.70-6.10); RED CELL DISTRI WIDTH 12.5 % (11.5-15.5)
[2022-08-16 05:45] LABS: ALKALINE PHOSPHATASE 71 u/l (38-126); ANION GAP 6 (6-22 (CALC)); BUN 12 mg/dL (9-20); BUN/CREATININE RATIO 16 (12-20 (CALC)); CARBON DIOXIDE 27 mmol/l (22-30); CHLORIDE 106 mmol/l (95-108); CREATININE 0.8 mg/dL (0.7-1.3); GFR FOR AFR.AMER. > 60 ML/MIN (>=60 (CALC)); GFR OTHER RACES > 60 ML/MIN (>=60 (CALC)); MAGNESIUM 1.6 mg/dL (1.6-2.3); SGOT/AST 18 u/l (17-59); SODIUM 135 mmol/l (137-146); TOTAL PROTEIN 5.4 g/dL (6.3-8.2)
[2022-08-16 05:54] LABS: ALBUMIN 2.7 g/dL (3.2-5.0)
[2022-08-16 06:04] VITALS: BP 119/75
[2022-08-16 10:46] VITALS: BP 128/78
[2022-08-16 14:45] VITALS: BP 130/72
[2022-08-16 19:32] VITALS: BP 147/81
[2022-08-16 23:41] VITALS: BP 155/78
[2022-08-17 04:29] VITALS: BP 126/74
[2022-08-17 05:25] LABS: BASO% 0.7 % (0-3); EOS% 0.3 % (0-8); HEMATOCRIT 31.1 % (39.0-50.0); HEMOGLOBIN 10.5 g/dl (14.0-18.0); MEAN CELL VOLUME 89.1 fL CALC (80.0-100.0); MEAN CORPUSCULAR HGB 30.1 pG CALC (26.0-32.0); MEAN CORPUSCULAR HGB CONC 33.8 g/dL CAL (32.0-36.0); MONO% 11.3 % (2-13); NEUT# 4.35 thou/uL (1.82-7.42); NEUT% 56.7 % (42-76); RED BLOOD COUNT 3.49 mill/uL (4.70-6.10); RED CELL DISTRI WIDTH 12.2 % (11.5-15.5)
[2022-08-17 05:49] LABS: ALBUMIN 2.9 g/dL (3.2-5.0); ALKALINE PHOSPHATASE 83 u/l (38-126); ANION GAP 7 (6-22 (CALC)); BUN 8 mg/dL (9-20); BUN/CREATININE RATIO 11 (12-20 (CALC)); CARBON DIOXIDE 28 mmol/l (22-30); CHLORIDE 105 mmol/l (95-108); CREATININE 0.7 mg/dL (0.7-1.3); GFR FOR AFR.AMER. > 60 ML/MIN (>=60 (CALC)); GFR OTHER RACES > 60 ML/MIN (>=60 (CALC)); MAGNESIUM 1.8 mg/dL (1.6-2.3); SGOT/AST 17 u/l (17-59); SODIUM 136 mmol/l (137-146); TOTAL PROTEIN 5.4 g/dL (6.3-8.2)
[2022-08-17 05:57] LABS: BILIRUBIN, TOTAL 0.1 mg/dL (0.2-1.3)
[2022-08-17 06:32] VITALS: BP 144/78
[2022-08-17 06:43] VITALS: BP 142/78
[2022-08-17 15:48] VITALS: BP 142/78
[2022-08-17 19:00] VITALS: BP 153/84
[2022-08-17 19:23] VITALS: BP 153/84
[2022-08-18 04:00] VITALS: BP 133/87
[2022-08-18 04:37] VITALS: BP 133/87
[2022-08-18 06:48] VITALS: BP 146/79
[2022-08-18 15:20] VITALS: BP 154/78
[2022-08-18 19:00] VITALS: BP 145/67
[2022-08-19 04:47] VITALS: BP 125/78
[2022-08-19 05:09] LABS: BASO% 0.7 % (0-3); HEMATOCRIT 32.5 % (39.0-50.0); HEMOGLOBIN 10.9 g/dl (14.0-18.0); IMMATURE GRANULOCYTES 0.3 % (0.0-5.0); LYMPH% 33.6 % (15-41); MEAN CELL VOLUME 88.1 fL CALC (80.0-100.0); MEAN CORPUSCULAR HGB 29.5 pG CALC (26.0-32.0); MEAN CORPUSCULAR HGB CONC 33.5 g/dL CAL (32.0-36.0); MONO% 11.8 % (2-13); NEUT# 3.68 thou/uL (1.82-7.42); NEUT% 53.6 % (42-76); RED BLOOD COUNT 3.69 mill/uL (4.70-6.10); RED CELL DISTRI WIDTH 12.3 % (11.5-15.5)
[2022-08-19 05:32] LABS: ANION GAP 8 (6-22 (CALC)); BUN 12 mg/dL (9-20); BUN/CREATININE RATIO 17 (12-20 (CALC)); CARBON DIOXIDE 28 mmol/l (22-30); CHLORIDE 106 mmol/l (95-108); CREATININE 0.7 mg/dL (0.7-1.3); GFR FOR AFR.AMER. > 60 ML/MIN (>=60 (CALC)); GFR OTHER RACES > 60 ML/MIN (>=60 (CALC)); MAGNESIUM 1.8 mg/dL (1.6-2.3); POTASSIUM 3.8 mmol/l (3.5-5.1); SODIUM 138 mmol/l (137-146)
[2022-08-19 06:51] VITALS: BP 137/82
[2022-08-19 14:45] VITALS: BP 138/74
[2022-08-19 18:59] VITALS: BP 133/76
[2022-08-20 04:21] VITALS: BP 139/75
[2022-08-20 05:34] LABS: BASO% 0.9 % (0-3); EOS% 0.1 % (0-8); HEMATOCRIT 36.3 % (39.0-50.0); IMMATURE GRANULOCYTES 0.1 % (0.0-5.0); LYMPH% 32.3 % (15-41); MEAN CELL VOLUME 88.5 fL CALC (80.0-100.0); MEAN CORPUSCULAR HGB 29.3 pG CALC (26.0-32.0); MEAN CORPUSCULAR HGB CONC 33.1 g/dL CAL (32.0-36.0); MONO% 10.8 % (2-13); NEUT# 4.18 thou/uL (1.82-7.42); NEUT% 55.8 % (42-76); RED BLOOD COUNT 4.1 mill/uL (4.70-6.10); RED CELL DISTRI WIDTH 12.5 % (11.5-15.5)
[2022-08-20 05:48] LABS: ALBUMIN 3.5 g/dL (3.2-5.0); ALKALINE PHOSPHATASE 86 u/l (38-126); ANION GAP 6 (6-22 (CALC)); BUN 12 mg/dL (9-20); BUN/CREATININE RATIO 13 (12-20 (CALC)); CARBON DIOXIDE 34 mmol/l (22-30); CHLORIDE 102 mmol/l (95-108); CREATININE 0.9 mg/dL (0.7-1.3); GFR FOR AFR.AMER. > 60 ML/MIN (>=60 (CALC)); GFR OTHER RACES > 60 ML/MIN (>=60 (CALC)); MAGNESIUM 1.9 mg/dL (1.6-2.3); POTASSIUM 3.6 mmol/l (3.5-5.1); SGOT/AST 33 u/l (17-59); SODIUM 138 mmol/l (137-146); TOTAL PROTEIN 6.8 g/dL (6.3-8.2)
[2022-08-20 06:36] VITALS: BP 138/85
[2022-08-20] MEDS ORDERED: ZYVOX600 MG PO (08:13)
[2022-08-20] MEDS ORDERED: LEVEMIR100 UNIT SC (08:13)
[2022-08-20] MEDS ORDERED: ROCEPHIN 1 GM1 GM IV (08:13)
[2022-08-20 15:29] VITALS: BP 139/82
[2022-08-20 18:57] VITALS: BP 159/82
[2022-08-21 04:30] VITALS: BP 109/72
[2022-08-21 06:54] VITALS: BP 122/74
[2022-08-21 15:28] VITALS: BP 145/78
== END 2022-08-21 16:56 | disposition home health service (06) | DRG 617 ==
LOC: ED 08:22 → ED-I 12:00 → ED 12:37 → MS2 12:38
PROVIDERS: Family Medicine; Internal Medicine; Nurse Practitioner Family; ADMIT Internal Medicine; ATTEND Internal Medicine
PROC: 0Y6S0Z0 Detachment at Left 2nd Toe, Complete, Open Approach (ICD-10-PCS; principal; 2022-08-15)
PROC: 0QBP0ZZ Excision of Left Metatarsal, Open Approach (ICD-10-PCS; 2022-08-15)
PROC: 0QBP0ZZ Excision of Left Metatarsal, Open Approach (ICD-10-PCS; 2022-08-15)
PROC: 0JBR0ZZ Excision of Left Foot Subcutaneous Tissue and Fascia, Open Approach (ICD-10-PCS; 2022-08-15)
PROC: 02HV33Z Insertion of Infusion Device into Superior Vena Cava, Percutaneous Approach (ICD-10-PCS; 2022-08-19)
PROC: B518ZZA Fluoroscopy of Superior Vena Cava, Guidance (ICD-10-PCS; 2022-08-19)
DX: E11.69 Type 2 diabetes mellitus with other specified complication (principal); L02.612 Cutaneous abscess of left foot; M86.672 Other chronic osteomyelitis, left ankle and foot; L03.116 Cellulitis of left lower limb; M00.072 Staphylococcal arthritis, left ankle and foot; Z16.21 Resistance to vancomycin; E11.621 Type 2 diabetes mellitus with foot ulcer; L97.529 Non-pressure chronic ulcer of other part of left foot with unspecified severity; E11.40 Type 2 diabetes mellitus with diabetic neuropathy, unspecified; M24.478 Recurrent dislocation, left toe(s); S91.332A Puncture wound without foreign body, left foot, initial encounter; F17.200 Nicotine dependence, unspecified, uncomplicated; B95.7 Other staphylococcus as the cause of diseases classified elsewhere; X58.XXXA Exposure to other specified factors, initial encounter; Z89.421 Acquired absence of other right toe(s); Z79.4 Long term (current) use of insulin; Z79.84 Long term (current) use of oral hypoglycemic drugs; Z20.822 Contact with and (suspected) exposure to COVID-19
CPT/HCPCS: J0131; J1650; J2020; Q9967

== ENCOUNTER 2022-11-26 06:44 | Day surgery (SDC) | payer OTHER ==
[~2022-11-26] VITALS: Ht 175.3 cm; Wt 80.7 kg
[~2022-11-26 06:44] MED LIST changes: +GABAPENTIN100 MG PO; +LIPITOR40 M1 PO; +NAPROXEN250 MG PO; +ROCEPHIN 1 GM1 GM IV; +ZYVOX600 MG PO
[2022-11-26] MEDS ORDERED: PERCOCET 10/31 COMBO PO (09:15)
[2022-11-26] MEDS ORDERED: CEPHALEXIN500 MG PO (09:15)
[2022-11-26 09:35] VITALS: BP 124/79
== END 2022-11-26 09:50 | disposition home or self-care (01) ==
LOC: ORM 06:44
PROVIDERS: ATTEND Podiatrist Foot & Ankle Surgery
DX: S91.301A Unspecified open wound, right foot, initial encounter (principal); L03.115 Cellulitis of right lower limb; E11.9 Type 2 diabetes mellitus without complications; X58.XXXA Exposure to other specified factors, initial encounter; Z89.422 Acquired absence of other left toe(s); Z89.421 Acquired absence of other right toe(s); Z79.84 Long term (current) use of oral hypoglycemic drugs; Z79.4 Long term (current) use of insulin
CPT/HCPCS: J0690